=== PATIENT | female | born 1980 | race Caucasian/White ===

== ENCOUNTER 2025-05-17 14:01 | Outpatient (OUT) | payer BC, SELFPAY ==
--- OUTSIDE RECORDS SUMMARY | 2025-05-17 13:10 | XMS_ITS | Encounter Summary ---
Author Organization [facility] Address [address] [place] [address] Care Team Providers Care Mobile Pet Groomer Name Role Phone Jessie Chery MD Unavailable Jessie Chery MD Primary Care Provider [phone] Reason for Visit * ReasonCommentsWell Women Visitirregular cycle * OBGYN (Routine) - ClosedSpecialtyDiagnoses / ProceduresReferred By Contact Referred To ContactObstetrics and Gynecology Diagnoses Irregular periods/menstrual cycles Procedures [place] OFFICE/OUTPATIENT NEW HIGH MDM 60 MINUTES Jessie Chery MD [address] [facility] [address] [place] [address] Phone: tel: fax: Paco Us DO [address] [place] [address] Phone: tel: Referral IDStatusReasonStart DateExpiration DateVisits RequestedVisits [id number] Required / Encounter Details DateTypeDepartmentCare Team (Latest Contact Info)Zswrmmsgcdg56/27/2025 1:10 PM EDTConsult [facility] [place] [facility] [address] [facility] [place] [address] Paco Us DO [address] [place] [address] Well woman exam with routine gynecological exam; Encounter for screening mammogram for malignant neoplasm of breast; Excessive menstruation with irregular cycle; Request for sterilization Social History Tobacco UseTypesPacks/DayYears UsedDateSmoking Tobacco: FormerCigarettes Smokeless Tobacco: Never Comments:Smokes 5 or less pe r day Alcohol UseStandard Drinks/WeekCommentsNot Lxyoazown31 (1 standard drink = 0.6 oz pure alcohol)coffee, tea 2-3 cups per daySocial Connection and Isolation PanelAnswerDate RecordedIn a typical week, how many times do you talk on the phone with family, friends, or neighbors?Once a week10/02/2023How often do you get together with friends or relatives?Patient /13/2024How often do you attend baptist or baptist services?Patient quwwvfcm80/13/2024o you belong to any clubs or organizations such as baptist groups, unions, fraternal or athletic groups, or school groups?No10/02/2023How often do you attend meetings of the clubs or organizations you belong to?Patient fwrbdduo31/13/2024re you , , , , never , or living with a partner? Living with gkwwrtm3910/02/2023UDIT-CAnswerDate RecordedQ1: How often do you have a drink containing alcohol?Never10/02/2023Q2: How many drinks containing alcohol do you have on a typical day when you are drinking?Patient does not drink 10/02/2023Q3: How often do you have six or more drinks on one occasion?Never 10/02/2023Overall Financial Resource Strain (CARDIA)AnswerDate RecordedHow hard is it for you to pay for the very basics like food, housing, medical care, and heating?Somewhat hard10/02/2023HQ-2AnswerDate RecordedPatient Health Questionnaire-2 Utaxv680Finriverton hospital [place] of Occupational Health - Occupational Stress QuestionnaireAnswerDate RecordedDo you feel stress - tense, restless, nervous, or anxious, or unable to sleep at night because yourmind is troubled all the time - these days?Rather much10/02/2023Exercise Vital Sign AnswerDate RecordedOn average, how many days per week do you engage in moderate to strenuous exercise (like a brisk walk)?5 days10/02/2023On average, how many minutes do you engage in exercise at this level?60 min10/02/2023Hunger Vital SignAnswerDate RecordedWithin the past 12 months, you worried that your food would run out before you got the money to buymore.Never true10/02/2023Within the past 12 months, the food you bought just didn't last and you didn't have money to get more.Never true10/02/2023RAPARE - TransportationAnswerDate RecordedIn the past 12 months, has lack of transportation kept you from medical appointments or from getting medications?No10/02/2023In the past 12 months, has lack of transportation kept you from meetings, work, or from getting things needed for daily living?No10/02/2023Housing Stability Vital SignAnswerDate RecordedIn the last 12 months, was there a time when you were not able to pay the mortgage or rent on time?No10/02/2023In the last 12 months, how many places have you lived?In the last 12 months, was there a time when you did not have a steady place to sleep or slept in [facility] (including now)?No 10/02/2023CommentsNoSex and Gender InformationValueDate RecordedSex Assigned at BirthNot on fileLegal StuIkezdv17/15/2023 6:45 PM EDTGender Identity Not on fileSexual OrientationNot on filedocumented as of this encounter Last Filed Vital Signs Vital SignReadingTime TakenCommentsBlood Nvmppvfp683/7005/17/2025 1:08 PM EDT Pulse--Temperature--Respiratory Rate--Oxygen Saturation--Inhaled Oxygen Concentration--Zwcnms31.5 kg (155 lb 8 oz)05/17/2025 1:08 PM GMYCfkaid126.6 cm (5' 4 )05/17/2025 1:08 PM EDTBody Mass Index26.6905/17/2025 1:08 PM EDT documented in this encounter Plan of Treatment DateTypeDepartmentCare Team (Latest Contact Info)Atqlbngpqmv28/24/2025 9:30 AM ESTProcedure Visit [facility] [address] [place] [address] [place] [id number] Paco Us, [address] [facility] [place] [address] NameTypePriorityAssociated DiagnosesOrder ScheduleBilateral screening mammogram ImagingRoutine Encounter for screening mammogram for malignant neoplasm of breast Expected: 05/17/2025 (Approximate), Expires: 07/17/2026THIN PREP TIS PAP AND HR HPV DNAPathology and CytologyRoutine Well woman exam with routine gynecological exam Ordered: 05/17/2025hCG, quantitative, pregnancyLabRoutine Excessive menstruation with irregular cycle Ordered: 05/17/2025TSHLabRoutine Excessive menstruation with irregular cycle Ordered: 05/17/2025T4, freeLabRoutine Excessive menstruation with irregular cycle Ordered: 05/17/2025BC and differentialLabRoutine Excessive menstruation with irregular cycle Ordered: 05/17/2025Follicle stimulating hormoneLabRoutine Excessive menstruation with irregular cycle Ordered: 05/17/2025Luteinizing hormoneLabRoutine Excessive menstruation with irregular cycle Ordered: 05/17/2025Hemoglobin J3gWekOjfmflw Excessive menstruation with irregular cycle Ordered: 05/17/2025DHEA-sulfateLabRoutine Excessive menstruation with irregular cycle Ordered: 05/17/2025DHEALabRoutine Excessive menstruation with irregular cycle Ordered: 05/17/2025US Pelvis w/ TVImagingRoutine Excessive menstruation with irregular cycle Expected: 05/17/2025, Expires: 05/17/2026ProlactinLabRoutine Excessive menstruation with irregular cycle Ordered: 05/17/2025documented as of this encounter Visit Diagnoses Diagnosis Well woman exam with routine gynecological exam Routine gynecological examination Encounter for screening mammogram for malignant neoplasm of breast Excessive menstruation with irregular cycle Request for sterilization documented in this encounter Care Teams Team MemberRelationshipSpecialtyStart DateEnd Date Jessie Chery MD [address] [facility] [address] [place] [address] PCP - [place] [employer]10/20/20 Jessie Chery MD [address] [facility] 110 [place] [id number] PCP - GeneralFamily Medicine02/07/23documented as of this encounter
[2025-05-17 14:23] LABS: Hematocrit 37.7 % (36.0-48.0); Hemoglobin 12.4 g/dL (12.0-16.0); Immature Granulocytes Abs Auto 0.05 10^3/uL (0.00-0.03); Immature Granulocytes Pct Auto 0.5 % (0.0-0.5); Lymphocytes Absolute Auto 3.7 10^3/uL (1.2-3.8); Mean Corpuscular HGB Conc 32.9 g/dL (29.9-35.2); Mean Corpuscular Hemoglobin 30.4 pg (26.7-34.0); Mean Corpuscular Volume 92.4 fL (81.0-99.0); Platelet Count 320 10^3/uL (150-450); Red Blood Count 4.08 10^6/uL (4.20-5.40); White Blood Count 9.4 10^3/uL (4.0-11.0)
--- OUTSIDE RECORDS SUMMARY | 2025-05-17 14:55 | XMS_ITS | Patient Health Record ---
Author Organization [facility] [place] Address [address] [place] [address] Support Name Relationship Address Phone Martina Gayle Guarantor Unknown [phone] Reason For Referral No Information Immunizations Vaccine Route Administration Date Status Comme nts Flu, Fluzone (19839) 6 mos+, single-dose syringe/vial (3531-4663) Intramuscular 08/14/2013 Pending 71Mfn23 14 09:48AM Plan Of Treatment No Information
--- OUTSIDE RECORDS SUMMARY | 2025-05-17 14:56 | XMS_ITS | Encounter Summary ---
Author Organization [facility] Address [address] [facility] [place] [address] Care Team Providers Care Academic Affairs Specialist Name Role Phone Jessie Chery MD Unavailable Jessie Chery MD Primary Care Provider [phone] Encounter Details DateTypeDepartmentCare Team (Latest Contact Info)Hjumstxbvto90/27/2025amboo flowsheet [facility] [place] [facility] [address] [place] [address] Paco Us DO [address] [place] [id number] Social History Tobacco UseTypesPacks/DayYears UsedDateSmoking Tobacco: FormerCigarettes Smokeless Tobacco: Never Comments:Smokes 5 or less pe r day Alcohol UseStandard Drinks/WeekCommentsNot Htwwicmdh57 (1 standard drink = 0.6 oz pure alcohol)coffee, tea 2-3 cups per daySocial Connection and Isolation PanelAnswerDate RecordedIn a typical week, how many times do you talk on the phone with family, friends, or neighbors?Once a week10/02/2023How often do you get together with friends or relatives?Patient rvufjjfj50/13/2024How often do you attend rastafari or episcopalian services?Patient crwhaipi51/13/2024o you belong to any clubs or organizations such as rastafari groups, unions, fraternal or athletic groups, or school groups?No10/02/2023How often do you attend meetings of the clubs or organizations you belong to?Patient lzqthxyx00/13/2024re you , , , , never , or living with a partner? Living with xpksccv4910/02/2023UDIT-CAnswerDate RecordedQ1: How often do you have a [...] care, and heating?Somewhat hard10/02/2023HQ-2AnswerDate RecordedPatient Health Questionnaire-2 Ewcwm678Finva hospital [place] of Occupational Health - Occupational Stress QuestionnaireAnswerDate [...] steady place to sleep or slept in ashelter (including now)?No 4CommentsNoSex and Gender InformationValueDate RecordedSex Assigned at BirthNot on fileLegal PlgEckbdo91/15/2023 6:45 PM EDTGender Identity Not on fileSexual OrientationNot on filedocumented as of this encounter Plan of Treatment DateTypeDepartmentCare Team (Latest Contact Info)Vqjvubwjfqb42/24/2025 9:30 AM ESTProcedure Visit [facility] [address] [facility] [place] [address] Paco Us DO [address] [facility] [address] [place], [place] [id number] documented as of this encounter Visit Diagnoses Not on filedocumented in this encounter Care Teams Team MemberRelationshipSpecialtyStart DateEnd Date Jessie Chery MD [address] [facility] 110 [place] [address] PCP - Estefania Hazel10/20/20 Jessie Chery MD [address] [facility] [address] [place] [address] PCP - GeneralFamily Medicine02/07/23documented as of this encounter
--- OUTSIDE RECORDS SUMMARY | 2025-05-17 14:56 | XMS_ITS | Clinical Summary ---
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 30 tablet 5Active lamoTRIgine (LaMICtal) 25 MG tablet Indications:Adjustment disorder with anxiety,Bipolar disorder, in full remission, most recent episode mixed (HCC)Take 1 tablet (25 mg) by mouth Daily 30 tablet 5Active clonazePAM (KlonoPIN) 0.5 MG tablet Indications:Adjustment disorder with anxietyTake 1 tablet (0.5 mg) by mouth in the morning and 1 tablet (0.5 mg) before bedtime. 60 tablet 5Active HYDROcodone-acetaminophen (Cabot) 5-325 MG tablet Indications:SacroiliitisTake 1 tablet by mouth 2 (two) times a day as needed for moderate pain or severe pain 60 tablet /5Active clonazePAM (KlonoPIN) 0.5 MG tablet Indications:Adjustment disorder with anxietyTake 1 tablet (0.5 mg) by mouth in the morning and 1 tablet (0.5 mg) before bedtime. 60 tablet 51Discontinued(Reorder) HYDROcodone-acetaminophen (Cabot) 5-325 MG tablet Indications:SacroiliitisTake 1 tablet by mouth 2 (two) times a day as needed for moderate pain or severe pain 60 tablet Discontinued(Reorder) Active Problems ProblemNoted DateDiagnosed DateIrregular periods/menstrual ebqcna3603/30/2025 Uueilsfhh22/17/2025 Assessment & Plan (01/05/2025 3:25 PM EDT): D/W patient risks and benefits of steroid injection. Dimpling at site of injection, Increased sugars potentially if Diabetic, Avascular necrosis. Patient has had in past with no adverse reaction. Answered all questions about steroid shot. Screening for thyroid ihsgtneu61/18/2025 Assessment & Plan (10/06/2024 3:39 PM EDT): Check labs Benign essential xelyqnwkjaqt77/18/2025 Assessment & Plan (10/06/2024 3:39 PM EDT): Our specific goals, for your hypertension, is to keep your blood pressure less than 140/90, and theimportance of weight control. We made recommendations on how to control your blood pressure, and minimize your risk of these copmplications. We also discussed your current barriers to a healthy living and importance of healthy diet and exercise. Prior to your visit today we have reviewed your chart and formed a plan to assist with providing you the best possible care. We reviewed the possible complications of hypertension including, stroke, heart failure and kidney impairment. In addition, we discussed your medications, the importance of taking them as prescribed. DASH diet handouts Adjustment disorder with wkctnsw3012/31/2022 Assessment & Plan (03/30/2025 3:35 PM EDT): Patient's Medicine is effective at controlling symptoms at current dose and frequency. PDMP reviewed with no evidence of overuse and abuse D/W patient to avoid use of benzodiazepines when consuming alcohol Advised against operating heavy machinery and driving long distances while on medicines. Assessment & Plan (01/05/2025 3:12 PM EDT): Patient's Medicine is effective at controlling symptoms at current dose and frequency. PDMP reviewed with no evidence of overuse and abuse D/W patient to avoid use of benzodiazepines when consuming alcohol Advised against operating heavy machinery and driving long distances while on medicines. Assessment & Plan (07/20/2024 9:24 AM EST): Patient's Medicine is effective at controlling symptoms at current dose and frequency. PDMP reviewed with no evidence of overuse and abuse D/W patient to avoid use of benzodiazepines when consuming alcohol Advised against operating heavy machinery and driving long distances while on medicines. Assessment & Plan (02/04/2024 2:51 PM EDT): Patient's Medicine is effective at controlling symptoms at current dose and frequency. PDMP reviewed with no evidence of overuse and abuse D/W patient to avoid use of benzodiazepines when consuming alcohol Advised against operating heavy machinery and driving long distances while on medicines. Assessment & Plan (10/07/2023 1:18 PM EDT): Patient's Medicine is effective at controlling symptoms at current dose and frequency. PDMP reviewed with no evidence of overuse and abuse D/W patient to avoid use of benzodiazepines when consuming alcohol Advised against operating heavy machinery and driving long distances while on medicines. Assessment & Plan (03/11/2023 3:48 PM EDT): Patient's Medicine is effective at controlling symptoms at current dose and frequency. PDMP reviewed with no evidence of overuse and abuse D/W patient to avoid use of benzodiazepines when consuming alcohol Advised against operating heavy machinery and driving long distances while on medicines. Alcohol dependence, in gpxcyopxo75/12/2023 Assessment & Plan (01/05/2025 3:22 PM EDT): Stable Assessment & Plan (05/05/2024 3:38 PM EDT): D/W patient reduce or abstain from alcohol D/W patient dangers of using opiates and alcohol together Assessment & Plan (02/04/2024 2:58 PM EDT): Not drinking Other chronic pain12/31/2022 Assessment & Plan (01/05/2025 3:13 PM EDT): Pain Contract signed Assessment & Plan (05/20/2023 3:57 PM EDT): Low suspicion this autoimmune rheumatologic disorder D/W Patient Fibromyalgia Had multiple trigger points Had work up 12 years Zkerhjyovd36/12/2023ipolar vukjymvi19/12/2023 Assessment & Plan (03/30/2025 3:43 PM EDT): Has been getting angry D/W patient Antipsychotics/AntiSeizure differences Lamictal discussed and rash or Yuan Johnsons Assessment & Plan (10/06/2024 3:39 PM EDT): Patient's Medicine is effective at controlling symptoms at current dose and frequency. PDMP reviewed with no evidence of overuse and abuse D/W patient to avoid use of benzodiazepines when consuming alcohol Advised against operating heavy machinery and driving long distances while on medicines. Assessment & Plan (10/07/2023 1:33 PM EDT): Consider ADD Cervical rydfyjpsw33/12/2023ervical stenosis (uterine cervix)12/31/2022 Dnrsinwvogjk03/12/2023Endometriosis determined by /12/2023 Gastroesophageal reflux disease without yupzdotzrzl49/12/2023Lumbago with sciatica, right side12/31/2022Menorrhagia with regular cycle12/31/2022ain in female genitalia on jczaijfwmyh10/12/2023rimary aslnbnxs05/12/2023Sciatica of left side12/31/20220835Isfviixacefe06/12/2023 Assessment & Plan (07/20/2024 9:28 AM EST): Medication choice and dosage is appropriate for patient's current medical conditions. Patient will continue to be required to be seen in our office at least every three months for monitoring. At eachfollow up visit I will reassess the patient's need for the medication. Patient is to have this medication prescribed only through this office. Failure to follow the rules and regulations will result in tapering and discontinuation of medications if applicable. Patient verbalized understanding. OARRS Report was reviewed for this patient. Cut out pop Assessment & Plan (05/05/2024 3:40 PM EDT): This is a chronic medical condition that is stable since last assessment. No changes in treatment are suggested at this time. Continue Current meds. I discussed with patient that while on prednisone, do not take any NSAIDs like Ibuprofen, Naprosyn,Alleve or motrin. Watch for any side effects like abdominal pain and nausea. Take the prednisone with food or milk. Prednisone may increase appetite. While on prednisone, watch for any sugar elevations. Assessment & Plan (10/07/2023 1:18 PM EDT): Medication choice and dosage is appropriate for patient's current medical conditions. Patient will continue to be required to be seen in our office at least every three months for monitoring. At eachfollow up visit I will reassess the patient's need for the medication. Patient is to have this medication prescribed only through this office. Failure to follow the rules and regulations will result in tapering and discontinuation of medications if applicable. Patient verbalized understanding. OARRS Report was reviewed for this patient. Assessment & Plan (03/11/2023 3:49 PM EDT): Medication choice and dosage is appropriate for patient's current medical conditions. Patient will continue to be required to be seen in our office at least every three months for monitoring. At eachfollow up visit I will reassess the patient's need for the medication. Patient is to have this medication prescribed only through this office. Failure to follow the rules and regulations will result in tapering and discontinuation of medications if applicable. Patient verbalized understanding. OARRS Report was reviewed for this patient. Seasonal allergic laggeezy62/12/2191Tbhjeb30/12/2023Spondylolisthesis at L5-S1 level12/31/2022 Assessment & Plan (01/05/2025 3:13 PM EDT): Medication choice and dosage is appropriate for patient's current medical conditions. Patient will continue to be required to be seen in our office at least every three months for monitoring. At eachfollow up visit I will reassess the patient's need for the medication. Patient is to have this medication prescribed only through this office. Failure to follow the rules and regulations will result in tapering and discontinuation of medications if applicable. Patient verbalized understanding. OARRS Report was reviewed for this patient. Spondylolysis of lumbosacral ekbaht0712/31/2022 Assessment & Plan (05/05/2024 3:37 PM EDT): Medication choice and dosage is appropriate for patient's current medical conditions. Patient will continue to be required to be seen in our office at least every three months for monitoring. At eachfollow up visit I will reassess the patient's need for the medication. Patient is to have this medication prescribed only through this office. Failure to follow the rules and regulations will result in tapering and discontinuation of medications if applicable. Patient verbalized understanding. OARRS Report was reviewed for this patient. Phvebmgwrrkfq95/12/2023History of cervical ygxwryaqa53/17/2020 Encounters DateTypeDepartmentCare IdhqAcgarhtqytb97/27/2025 1:10 PM EDTConsult [facility] [address] [place] [phone] Paco Us, DO Well woman exam with routine gynecological exam; Encounter for screening mammogram for malignant neoplasm of breast; Excessive menstruation with irregular cycle; Request for kjpbicmbfeiiy50/27/2025linisync Result Encounter [facility] External Department Unsolicited Paco Us, DO 5Bamboo flowsheet [facility] [address] [address] [place] [phone] Paco Us, DO 05/16/20252807Nyntts99/06/2025Refill [facility] [address] [place] [phone] Jessie Chery MD Bfnpkkzvkshq21/02/2025Refill [facility] [address] [facility] [address] [place] [address] Jessie Chery MD Adjustment disorder with aykpdhy6703/30/2025 3:30 PM EDTOffice Visit [facility] [address] [place] [address] Jessie Chery MD Adjustment disorder with anxiety (Primary Dx); Irregular periods/menstrual cycles; Bipolar disorder, in full remission, most recent episode mixed (HCC)03/30/2025 Rlxslw0303/25/2025Refill [facility] [address] [facility] [address] [place] [address] Maria Esther Jones, GER Krfqfuponles54/04/2025Refill [facility] [address] [facility] [address] [place] [address] Jessie Chery MD Adjustment disorder with mwytpja8403/25/20257153Erdhyp14/08/2025Refill [facility] [address] [place] [address] Maria Esther Jones, GER Hpweazsubpmb73/05/2025Refill [facility] [address] [facility] [address] [place] [address] Maria Esther Jones, GER Adjustment disorder with mzumugf8302/23/2025Refill [facility] [address] [facility] [address] [place] [address] Jessie Chery MD Sacroiliitisfrom Last 3 Months Immunizations ImmunizationAdministration DatesNext DueInfluenza, injectable, quadrivalent 06/20/2021Influenza, injectable, quadrivalent, preservative free05/09/2022, 05/21/2020Influenza, seasonal, zhggqwebsa35/24/2014Influenza, seasonal, intradermal, preservative free05/16/2015 Family History Medical HistoryRelationNameCommentsArthritisFatherJim ZoellnerOvarian cancer Father's SisterProstate cancerMaternal GrandfatherRelationNameStatusComments FatherJim ZoellnerAliveFather's Sisterin early 20's due to estrogenMaternal GrandfatherMotherAlive Social History Tobacco UseTypesPacks/DayYears UsedDateSmoking Tobacco: FormerCigarettes Smokeless Tobacco: Never Tobacco Cessation:Counseling Given: Not Answered Comments:Smokes 5 or less per day Alcohol UseStandard Drinks/WeekCommentsNot Tsaeiirtw60 (1 standard drink = 0.6 oz pure alcohol)coffee, tea 2-3 cups per daySocial Connection and Isolation PanelAnswerDate RecordedIn a typical week, how many times do you talk on the phone with family, friends, or neighbors?Once a week10/02/2023How often do you get together with friends or relatives?Patient lasmfmdh28/13/2024How often do you attend anabaptist or nondenominational services?Patient pzkitcva44/13/2024o you belong to any clubs or organizations such as anabaptist groups, unions, fraternal or athletic groups, or school groups?No10/02/2023How often do you attend meetings of the clubs or organizations you belong to?Patient akmffinv43/13/2024re you , , , , never , or living with a partner? Living with xpyojuk3910/02/2023UDIT-CAnswerDate RecordedQ1: How often do you have a [...] care, and heating?Somewhat hard10/02/2023HQ-2AnswerDate RecordedPatient Health Questionnaire-2 Iyzjs535Finintermountain healthcare [place] [employer] - Occupational Stress QuestionnaireAnswerDate [...] steady place to sleep or slept in universal health services (including now)?No 10/02/2023CommentsNoSex and Gender InformationValueDate RecordedSex Assigned at BirthNot on fileLegal TrkWhrtud78/15/2023 6:45 PM EDTGender Identity Not on fileSexual OrientationNot on file Last Filed Vital Signs Vital SignReadingTime TakenCommentsBlood Ohoydgiy802/7010 1:08 PM EDT Osjfu4207 3:27 PM EDTTemperature--Respiratory Rate--Oxygen Wnhwvutvyg79% 03/30/2025 3:27 PM EDTInhaled Oxygen Concentration--Rzfyok72.5 kg (155 lb 8 oz) 05/17/2025 1:08 PM ZSAAsexhm100.6 cm (5' 4 )05/17/2025 1:08 PM EDTBody Mass Index26.6905/17/2025 1:08 PM EDT Plan of Treatment DateTypeDepartmentCare Team (Latest Contact Info)Ntyaxipbptv34/24/2025 9:30 AM ESTProcedure Visit [facility] [address] [place] [phone] Paco Us, [address] [facility] [address] [place], [place] [phone] Health MaintenanceDue DateLast DoneCommentsCT Irghgdtpelzz75/17/1979FIT-DNA 1978FIT1978FOBT1978 8787Plarulsthnwrj71/17/1979MMR Vaccines (1 of 1 - Standard series)12/06/1979DTaP/Tdap/Td Vaccines (1 - Tdap)1985Hepatitis B Vaccines (1 of 3 - 19+ 3-dose series)1997Pneumococcal Vaccine: Pediatrics (0 to 5 Years) and At-Risk Patients (6 to 64 Years) (1 of 2 - PCV) 1997Pap Smear12/06/19997511Clyfzomtqgb91, 12/09/2014 Colorectal Cancer Gchvmiujo13/21/2025COVID-19 Vaccine (2 - season) Influenza Vaccine (#1)/, 06/20/2021, 05/21/2020, Additional history jdesnmQysbwiejn25/12/202511/06/2024, 03/16/2019, 03/16/2019Cervical Cancer Anhlzzauq90/12/2026HPV/Cgjufr55HIB VaccinesAged OutNo longer eligible based on patient's age to complete this topic HPV VaccinesAged OutNo longer eligible based on patient's age to complete this topicHepatitis A VaccinesAged OutNo longer eligible based on patient's age to complete this topicIPV VaccinesAged OutNo longer eligible based on patient's age to complete this topicMeningococcal B VaccineAged OutNo longer eligible based on patient's age to complete this topicMeningococcal VaccineAged OutNo longer eligible based on patient's age to complete this topicRotavirus VaccinesAged Out No longer eligible based on patient's age to complete this topic Procedures Procedure NamePriorityDate/TimeAssociated DiagnosisCommentsALL CBC WITH AUTO CRLKMpnfsmr36/27/2025 2:16 PM EDT BI MAMMOGRAM SCREENING TOMOSYNTHESIS HKDNGPZTSPaaxuof44/12/2024 4:08 PM EST Encounter for screening mammogram for malignant neoplasm of breast THINPREP TIS PAP REFLEX HPV MRNA E6/E7 ([id number])Qxuhrek5201/30/2021 FSANNCEHANGSwpwvhx25/21/2015 12:00 PM EDT from Last 3 Months or Most Recently Relevant to Health Maintenance Results * (ABNORMAL) ALL CBC WITH AUTO DIFF (05/17/2025 2:16 PM EDT)ComponentValueRef RangeTest MethodAnalysis TimePerformed AtPathologist SignatureTBH WBC9.44.0 - 11.0 10 3/uLTBHTBH RBC4.08(L)4.20 - 5.40 10 6/uLTBHTBH HGB12.412.0 - 16.0 g/dL TBHTBH HCT37.736.0 - 48.0 %TBHTBH MCV92.481.0 - 99.0 fLTBHTBH MCH30.426.7 - 34.0 pgTBHTBH MCHC32.929.9 - 35.2 g/dLTBHTBH RDW12.511.0 - 15.0 %TBHTBH ARX712 150 - 450 10 3/uLTBHTBH MPV9.1(L)9.5 - 13.5 fLTBHNEUTROPHILS PERCENT AUTO52.3 43.0 - 75.0 %TBHLYMPHOCYTES PERCENT AUTO39.920.5 - 60.0 %TBHMONOCYTES PERCENT AUTO5.31.7 - 12.0 %TBHTBH EO %1.30.9 - 7.0 %TBHBASOPHILS PERCENT AUTO0.70.2 - 2.0 %TBHIMMATURE GRANULOCYTES PCT AUTO0.50.0 - 0.5 %TBHNEUTROPHILS ABSOLUTE AUTO4.91.4 - 6.5 10 3/uLTBHLYMPHOCYTES ABSOLUTE AUTO3.71.2 - 3.8 10 3/uLTBH MONOCYTES ABSOLUTE AUTO0.50.3 - 0.8 10 3/uLTBHTBH EO #0.10.0 - 0.7 10 3/uLTBH BASOPHILS ABSOLUTE AUTO0.10.0 - 0.1 10 3/uLTBHIMMATURE GRANULOCYTES ABS AUTO 0.05(H)0.00 - 0.03 10 3/uLTBHSpecimen (Source)Anatomical Location / Laterality Collection Method / VolumeCollection TimeReceived Time05/17/2025 2:16 PM EDT 05/17/2025 2:17 PM EDT Narrative CLINISYNC - 05/17/2025 2:25 PM EDT Authorizing ProviderResult TypeResult StatusCorey Magen DOCLINISYNCFinal Result Performing OrganizationAddressCity/State/ZIP CodePhone Number [facility] * Bilateral screening mammogram with tomosynthesis (06/02/2024 4:08 PM EST) Anatomical RegionLateralityModalityBreastBilateralMammographySpecimen (Source) Anatomical Location / LateralityCollection Method / VolumeCollection Time Received Time06/03/2024 1:50 PM EST Impressions 06/03/2024 1:55 PM EST Impression: No specific evidence of malignancy seen in either breast. BIRADS 2 - Benign DENSITY: The breasts are heterogeneously dense, which may obscure small masses FOLLOW-UP: Routine Screening Mamm ELECTRONICALLY SIGNED BY: Christian Camp M.D. Narrative 06/03/2024 1:55 PM EST Examination: BI MAMMOGRAM SCREENING TOMOSYNTHESIS BILATERAL Clinical History: yearly Technique: Screening digital mammography study of both breasts was performed with 2-D and 3-D tomosynthesis imaging. Study was compared to the prior exam dated 03/16/2019. Findings: There is no evidence of interval dominant spiculated mass, grouped microcalcifications, or skin thickening which would be suggestive of malignancy. ?? A single benign-appearing calcification is seen on the left. Breast implants are noted bilaterally and appear grossly unremarkable, no obvious interval contour abnormality or leak. Procedure Note Christian Camp MD - 06/03/2024 Examination: BI MAMMOGRAM SCREENING TOMOSYNTHESIS BILATERAL Clinical History: yearly Technique: Screening digital mammography study of both breasts wasperformed with 2-D and 3-D tomosynthesis imaging. Study was compared tothe prior exam dated 03/16/2019. Findings: There is no evidence of interval dominant spiculated mass,grouped microcalcifications, or skin thickening which would be suggestiveof malignancy. A single benign-appearing calcification is seen on the left. Breastimplants are noted bilaterally and appear grossly unremarkable, no obviousinterval contour abnormality or leak. IMPRESSION: Impression: No specific evidence of malignancy seen in either breast. BIRADS 2 - Benign DENSITY: The breasts are heterogeneously dense, which may obscure smallmasses FOLLOW-UP: Routine Screening Mamm ELECTRONICALLY SIGNED BY: Christian Camp M.D. Authorizing ProviderResult TypeResult StatusJessie Chery MDIMFabiola BI PROCEDURES Final Result * THINPREP TIS PAP REFLEX HPV MRNA E6/E7 ([id number]) (01/30/2021)ComponentValueRef RangeTest MethodAnalysis TimePerformed AtPathologist SignatureCLINICAL INFORMATION:Normal examNOMS LEGACY EXTERNAL LABLMP:01/20/21[facility] LEGACY EXTERNAL LABPREV. PAP:NL PER PT 2018[facility] LEGACY EXTERNAL LABPREV. BX:NANOMS LEGACY EXTERNAL LABSOURCE:EndocervixNOMS LEGACY EXTERNAL LABSTATEMENT OF ADEQUACY:SEE COMMENTNOMS LEGACY EXTERNAL LABComment: Satisfactory for evaluation. Endocervical/transformation zone component absent. INTERPRETATION/RESULT:Negative for intraepithelial lesion or malignancy.[facility] EXTERNAL LABCOMMENT:This Pap test has been evaluated with computer assisted technology.[facility] LABCYTOTECHNOLOGIST:SEE COMMENTSee Note:[facility] LEGACY EXTERNAL LABComment: Reference Range: ZL, CT(ASCP) CT screening location: [employer] [facility], [address] [place] [address]. COMMENTSEE COMMENTNOMS LEGACY EXTERNAL LABComment: EXPLANATORY NOTE: The Pap is a screening test for cervical cancer. It is not a diagnostic test and is subject to false negative and false positive results. It is most reliable when a satisfactory sample, regularly obtained, is submitted with relevant clinical findings and history, and when the Pap result is evaluated along with historic and current clinical information. Specimen (Source)Anatomical Location / LateralityCollection Method / Volume Collection TimeReceived Time01/30/2021 Narrative Authorizing ProviderResult TypeResult StatusGeoffrey Perales DOEC LABSFinal ResultPerforming OrganizationAddressCity/State/ZIP CodePhone Number [facility] * Colonoscopy (12/09/2014 12:00 PM EDT)Anatomical RegionLateralityModality EndoscopySpecimen (Source)Anatomical Location / LateralityCollection Method / VolumeCollection TimeReceived Time12/09/2014 12:00 PM EDT Narrative 12/09/2014 12:00 PM EDT PERFORMED AT [facility] LOCATION:[id number] external hemorrhoids Procedure Note CONVERSION, GENERIC - 12/06/2022 PERFORMED AT [facility] LOCATION:[id number] external hemorrhoids Authorizing ProviderResult TypeResult Bryan Chery MDENDOSCOPY PROCEDURE ORDERABLESFinal Result from Last 3 Months or Most Recently Relevant to Health Maintenance Insurance Care Teams Team MemberRelationshipSpecialtyStart DateEnd Date Jessie Chery MD [address] [place] [id number] PCP - [facility]10/20/20 Jessie Chery MD [address] [facility] [address] [place] [address] PCP - [facility]02/07/23
--- OUTSIDE RECORDS SUMMARY | 2025-05-17 14:56 | XMS_ITS | Encounter Summary ---
Author Organization [facility] Address [address] [place] [address] Care Team Providers Care Conveyor System Operator Name Role Phone Jessie Chery MD Unavailable Jessie Chery MD Primary Care Provider [phone] Encounter Details DateTypeDepartmentCare Team (Latest Contact Info)Uhyzuavaard62/26/2025Travel Social History Tobacco UseTypesPacks/DayYears UsedDateSmoking Tobacco: FormerCigarettes Smokeless Tobacco: Never Comments:Smokes 5 or less pe r day Alcohol UseStandard Drinks/WeekCommentsNot Rfzjirfib81 (1 standard drink = 0.6 oz pure alcohol)coffee, tea 2-3 cups per daySocial Connection and Isolation PanelAnswerDate RecordedIn a typical week, how many times do you talk on the phone with family, friends, or neighbors?Once a week10/02/2023How often do you get together with friends or relatives?Patient /13/2024How often do you attend sabianist or methodist services?Patient zedbaono96/13/2024o you belong to any clubs or organizations such as sabianist groups, unions, fraternal or athletic groups, or school groups?No10/02/2023How often do you attend meetings of the clubs or organizations you belong to?Patient bshemxps31/13/2024re you , , , , never , or living with a partner? Living with fgmnxvi9610/02/2023UDIT-CAnswerDate RecordedQ1: How often do you have a [...] care, and heating?Somewhat hard10/02/2023HQ-2AnswerDate RecordedPatient Health Questionnaire-2 Aekiv999FinInd[facility] of Occupational [facility] - Occupational Stress QuestionnaireAnswerDate [...] sleep or slept in ashelter (including now)?No 10/02/2023CommentsUnknownSex and Gender InformationValueDate RecordedSex Assigned at BirthNot on fileLegal VkqIkvfyq65/15/2023 6:45 PM EDTGender Identity Not on fileSexual OrientationNot on filedocumented as of this encounter Plan of Treatment DateTypeDepartmentCare Team (Latest Contact Info)Lgxhehpteut58/24/2025 9:30 AM ESTProcedure Visit [facility] OBSAM[facility]TH[facility] [address] [place] [phone] Paco Us DO [address] [place] [address] documented as of this encounter Visit Diagnoses Not on filedocumented in this encounter Care Teams Team MemberRelationshipSpecialtyStart DateEnd Date Jessie Chery MD [address] [place], [place] [phone] PCP - Estefania Hazel10/20/20 Jessie Chery MD [address] [place] [address] PCP - GeneralFamily Medicine02/07/23documented as of this encounter
[2025-05-17 15:00] LABS: Thyroid Stimulating Hormone 1.700 uIU/mL (0.358-3.740)
[2025-05-18 12:09] LABS: FSH 6.0 mIU/mL (.)
== END 2025-05-17 14:02 | disposition home or self-care (01) ==
LOC: LAB 14:05
PROVIDERS: PCP Family Medicine; Visit Provider Obstetrics & Gynecology
DX: N92.1 Excessive and frequent menstruation with irregular cycle (principal)
CPT/HCPCS: 36415; 82626; 82627; 83001; 83002; 83036; 84146; 84439; 84443; 84702; 85025; 87624; 88175

== ENCOUNTER 2025-05-17 19:54 | Outpatient (REF) | payer BC, SELFPAY ==
--- OUTSIDE RECORDS SUMMARY | 2025-05-17 13:10 | XMS_ITS | Encounter Summary ---
Author Organization [facility] Address [address] [place] [address] Care Team Providers Care Weight Yardage Checker Name Role Phone Jessie Chery MD Unavailable Jessie Chery MD Primary Care Provider [phone] Reason for Visit * ReasonCommentsWell Women Visitirregular cycle * OBGYN (Routine) - ClosedSpecialtyDiagnoses / ProceduresReferred By Contact Referred To ContactObstetrics and Gynecology Diagnoses Irregular periods/menstrual cycles Procedures AL OFFICE/OUTPATIENT NEW HIGH MDM 60 MINUTES Jessie Chery MD [address] [facility] [address] [place] [address] Phone: tel: fax: Paco Us DO [address] [place] [address] Phone: tel: Referral IDStatusReasonStart DateExpiration DateVisits RequestedVisits [id number] [facility] Required / Encounter Details DateTypeDepartmentCare Team (Latest Contact Info)Kicsnnqtnec08/27/2025 1:10 PM EDTConsult [facility]ATRINA [facility] [place] [facility] [address] [facility] [place] [address] Paco Us DO [address] [place] [address] Well woman exam with routine gynecological exam; Encounter for screening mammogram for malignant neoplasm of breast; Excessive menstruation with irregular cycle; Request for sterilization Social History Tobacco UseTypesPacks/DayYears UsedDateSmoking Tobacco: FormerCigarettes Smokeless Tobacco: Never Comments:Smokes 5 or less pe r day Alcohol UseStandard Drinks/WeekCommentsNot Eraxfojhs06 (1 standard drink = 0.6 oz pure alcohol)coffee, tea 2-3 cups per daySocial Connection and Isolation PanelAnswerDate RecordedIn a typical week, how many times do you talk on the phone with family, friends, or neighbors?Once a week10/02/2023How often do you get together with friends or relatives?Patient qqhuqlzo43/13/2024How often do you attend baptist or adventist services?Patient wqercere02/13/2024o you belong to any clubs or organizations such as baptist groups, unions, fraternal or athletic groups, or school groups?No10/02/2023How often do you attend meetings of the clubs or organizations you belong to?Patient wqmwbqez66/13/2024re you , , , , never , or living with a partner? Living with geqmnbz6910/02/2023UDIT-CAnswerDate RecordedQ1: How often do you have a [...] care, and heating?Somewhat hard10/02/2023HQ-2AnswerDate RecordedPatient Health Questionnaire-2 Gcdql651Finogden regional medical center [place] of Occupational Health - Occupational Stress QuestionnaireAnswerDate [...] steady place to sleep or slept in [facility] (including now)?No 10/02/2023CommentsNoSex and Gender InformationValueDate RecordedSex Assigned at BirthNot on fileLegal ZhiGjjwnt17/15/2023 6:45 PM EDTGender Identity Not on fileSexual OrientationNot on filedocumented as of this encounter Last Filed Vital Signs Vital SignReadingTime TakenCommentsBlood Oozyqhcz259/7005/17/2025 1:08 PM EDT Pulse--Temperature--Respiratory Rate--Oxygen Saturation--Inhaled Oxygen Concentration--Qqutat32.5 kg (155 lb 8 oz)05/17/2025 1:08 PM NEVNbtexe913.6 cm (5' 4 )05/17/2025 1:08 PM EDTBody Mass Index26.6905/17/2025 1:08 PM EDT documented in this encounter Plan of Treatment DateTypeDepartmentCare Team (Latest Contact Info)Zuvdvcyxyoq46/24/2025 9:30 AM ESTProcedure Visit [facility] [address] [place] [address] [place] [address] Paco Us, [address] [facility] [place] [address] NameTypePriorityAssociated DiagnosesOrder ScheduleBilateral screening mammogram ImagingRoutine Encounter [...] Excessive menstruation with irregular cycle Ordered: 05/17/2025Hemoglobin N5wHxrAyhyevh Excessive menstruation with irregular cycle Ordered: 05/17/2025DHEA-sulfateLabRoutine [...] MemberRelationshipSpecialtyStart DateEnd Date Jessie Chery MD [address] [facility] [address] [place] [address] PCP - [place] [employer]10/20/20 Jessie Chery MD [address] [facility] 110 [place] [phone] PCP - GeneralFamily Medicine02/07/23documented as of this encounter
--- OUTSIDE RECORDS SUMMARY | 2025-05-17 19:59 | XMS_ITS | Clinical Summary ---
Author Organization [facility] Address [address] [place] [address] Care Team Providers Care Ophthalmology Technician Name Role Phone Jessie Chery MD Unavailable Jessie Chery MD Primary Care Provider [phone] Allergies Active AllergyReactionsCriticalityNoted DqheReaxyeqoGuywamkkqg54/08/2020 Other Reaction(s): Unknown Reaction Medications MedicationSigDispense QuantityRefillsLast [...] mg) before bedtime. 60 tablet 5Active HYDROcodone-acetaminophen ([place]) 5-325 MG tablet Indications:SacroiliitisTake 1 tablet by mouth 2 (two) times a day as needed for moderate pain or severe pain 60 tablet /5Active clonazePAM (KlonoPIN) 0.5 MG tablet Indications:Adjustment disorder with anxietyTake 1 tablet (0.5 mg) by mouth in the morning and 1 tablet (0.5 mg) before bedtime. 60 tablet 51Discontinued(Reorder) HYDROcodone-acetaminophen ([place]) 5-325 MG tablet Indications:SacroiliitisTake 1 tablet by mouth 2 (two) times a day as needed for moderate pain or severe pain 60 tablet Discontinued(Reorder) Active Problems ProblemNoted DateDiagnosed DateIrregular periods/menstrual cdypha6503/30/2025 Lvpcqopyz75/17/2025 Assessment & Plan (01/05/2025 3:25 PM EDT): D/W patient risks and benefits of steroid injection. Dimpling at site of injection, Increased sugars potentially if Diabetic, Avascular necrosis. Patient has had in past with no adverse reaction. Answered all questions about steroid shot. Screening for thyroid zxlgjyqo27/18/2025 Assessment & Plan (10/06/2024 3:39 PM EDT): Check labs Benign essential /18/2025 Assessment & Plan (10/06/2024 3:39 PM EDT): [...] prescribed. DASH diet handouts Adjustment disorder with wxtejdw3312/31/2022 Assessment & Plan (03/30/2025 3:35 PM EDT): [...] distances while on medicines. Alcohol dependence, in vdmfjdcfe19/12/2023 Assessment & Plan (01/05/2025 3:22 PM EDT): [...] trigger points Had work up 12 years Vskkcumvcz18/12/2023ipolar jvgipnbr53/12/2023 Assessment & Plan (03/30/2025 3:43 PM EDT): [...] (10/07/2023 1:33 PM EDT): Consider ADD Cervical ltzjpadhz91/12/2023ervical stenosis (uterine cervix)12/31/2022 Cuniosixuicw82/12/2023Endometriosis determined by ngfrijsxfoe52/12/2023 Gastroesophageal reflux disease without gikxymimaxn36/12/2023Lumbago with sciatica, right side12/31/2022Menorrhagia with regular cycle12/31/2022ain in female genitalia on kqvcuzonfhm13/12/2023rimary omllvedf54/12/2023Sciatica of left side12/31/20221479Uurseqamydif65/12/2023 Assessment & Plan (07/20/2024 9:28 AM EST): [...] was reviewed for this patient. Seasonal allergic crrybvra55/12/1887Wvpdwc83/12/2023Spondylolisthesis at L5-S1 level12/31/2022 Assessment & Plan (01/05/2025 [...] reviewed for this patient. Spondylolysis of lumbosacral funqai4212/31/2022 Assessment & Plan (05/05/2024 3:37 PM EDT): [...] OARRS Report was reviewed for this patient. Kwfpbswkcgdpv69/12/2023History of cervical yihgljbdm55/17/2020 Encounters DateTypeDepartmentCare ZeefPkjzebeeikf35/27/2025 1:10 PM EDTConsult [facility] MORENO [address] [place] [phone] Paco Us, DO Well woman exam with routine gynecological exam; Encounter for screening mammogram for malignant neoplasm of breast; Excessive menstruation with irregular cycle; Request for vmpikknesoqcp67/27/2025linisync Result Encounter [facility] External Department Unsolicited Paco Us, DO 5Bamboo flowsheet [facility] [address] [place] [phone] Paco Us, DO 05/16/20258592Tftppo35/06/2025Refill [facility] [address] [place] [phone] Jessie Chery MD Ipknydzsusnh91/02/2025Refill [facility] [address] [facility] [address] [place] [address] Jessie Chery MD Adjustment disorder with fyqqcdl7703/30/2025 3:30 PM EDTOffice Visit [facility] [address] [place] [address] Jessie Chery MD Adjustment disorder with anxiety (Primary Dx); Irregular periods/menstrual cycles; Bipolar disorder, in full remission, most recent episode mixed (HCC)03/30/2025 Oyiqsl3303/25/2025Refill [facility] [address] [facility] [address] [place] [address] Maria Esther Jones, GER Ovmzuvpseybh03/04/2025Refill [facility] [address] [facility] [address] [place] [address] Jessie Chery MD Adjustment disorder with tcgfwdk0103/25/20256207Gpnosl58/08/2025Refill [facility] [address] [place] [address] Maria Esther Jones, GER Qdjaplmhrbmx46/05/2025Refill [facility] [address] [facility] [address] [place] [address] Maria Esther Jones, GER Adjustment disorder with rtarvfv7402/23/2025Refill [facility] [address] [facility] [address] [place] [address] Jessie Chery MD Sacroiliitisfrom Last 3 Months Immunizations ImmunizationAdministration DatesNext DueInfluenza, injectable, quadrivalent 06/20/2021Influenza, injectable, quadrivalent, preservative free05/09/2022, 05/21/2020Influenza, seasonal, mliuecuxbk62/24/2014Influenza, seasonal, intradermal, preservative free05/16/2015 Family History Medical HistoryRelationNameCommentsArthritisFatherJim ZoellnerOvarian cancer Father's SisterProstate cancerMaternal GrandfatherRelationNameStatusComments FatherJim ZoellnerAliveFather's Sisterin early 20's due to estrogenMaternal GrandfatherMotherAlive Social History Tobacco UseTypesPacks/DayYears UsedDateSmoking Tobacco: FormerCigarettes Smokeless Tobacco: Never Tobacco Cessation:Counseling Given: Not Answered Comments:Smokes 5 or less per day Alcohol UseStandard Drinks/WeekCommentsNot Mphscremz49 (1 standard drink = 0.6 oz pure alcohol)coffee, tea 2-3 cups per daySocial Connection and Isolation PanelAnswerDate RecordedIn a typical week, how many times do you talk on the phone with family, friends, or neighbors?Once a week10/02/2023How often do you get together with friends or relatives?Patient htqotvfk15/13/2024How often do you attend alevism or protestant services?Patient mnegcrxu34/13/2024o you belong to any clubs or organizations such as alevism groups, unions, fraternal or athletic groups, or school groups?No10/02/2023How often do you attend meetings of the clubs or organizations you belong to?Patient sxyhvmgj58/13/2024re you , , , , never , or living with a partner? Living with zeekglh8410/02/2023UDIT-CAnswerDate RecordedQ1: How often do you have a [...] care, and heating?Somewhat hard10/02/2023HQ-2AnswerDate RecordedPatient Health Questionnaire-2 Hyjra886Fin[facility] [place] of Occupational Health - Occupational Stress QuestionnaireAnswerDate [...] steady place to sleep or slept in [facility] (including now)?No 10/02/2023CommentsNoSex and Gender InformationValueDate RecordedSex Assigned at BirthNot on fileLegal EcxVbgpbt03/15/2023 6:45 PM EDTGender Identity Not on fileSexual OrientationNot on file Last Filed Vital Signs Vital SignReadingTime TakenCommentsBlood Bitivasu298/7010 1:08 PM EDT Iinsf7528 3:27 PM EDTTemperature--Respiratory Rate--Oxygen Nxskkognhh89% 03/30/2025 3:27 PM EDTInhaled Oxygen Concentration--Clqlsc74.5 kg (155 lb 8 oz) 05/17/2025 1:08 PM CAIOfxcjv024.6 cm (5' 4 )05/17/2025 1:08 PM EDTBody Mass Index26.6905/17/2025 1:08 PM EDT Plan of Treatment DateTypeDepartmentCare Team (Latest Contact Info)Hlsxpgfqecu86/24/2025 9:30 AM ESTProcedure Visit [facility] [address] [phone] Paco Us, [address] [place], [place] [phone] Health MaintenanceDue DateLast DoneCommentsCT Ylkqsgslprwb63/17/1979FIT-DNA 1978FIT1978FOBT1978 7724Elymkwqtbjqlh71/17/1979MMR Vaccines (1 of 1 - Standard series)12/06/1979DTaP/Tdap/Td Vaccines (1 - Tdap)1985Hepatitis B Vaccines (1 of 3 - 19+ 3-dose series)1997Pneumococcal Vaccine: Pediatrics (0 to 5 Years) and At-Risk Patients (6 to 64 Years) (1 of 2 - PCV) 1997Pap Smear12/06/19995351Xxacrgivzvz14, 12/09/2014 Colorectal Cancer Vxsumqnes37/21/2025COVID-19 Vaccine (2 - season) Influenza Vaccine (#1)/, 06/20/2021, 05/21/2020, Additional history fgdxzrEsajsyigj98/12/202511/06/2024, 03/16/2019, 03/16/2019Cervical Cancer Roaaiuads27/12/2026HPV/Mnbeav41HIB VaccinesAged OutNo longer eligible based on patient's [...] complete this topic Procedures Procedure NamePriorityDate/TimeAssociated DiagnosisCommentsALL THYROXINE (T4) WIUSCoxosfn23/27/2025 2:16 PM EDT [facility] PREG QUANT WTBXqcfhhu57/27/2025 2:16 PM EDT ALL THYROID STIM QXTSBKQFcpnrqc20/27/2025 2:16 PM EDT MLR HEMOGLOBIN N3RLtlxwhy17/27/2025 2:16 PM EDT ALL CBC WITH AUTO RYKDYrcmoae55/27/2025 2:16 PM EDT BI MAMMOGRAM SCREENING TOMOSYNTHESIS HYCCJTEBVHgjgaem61/12/2024 4:08 PM EST Encounter for screening mammogram for malignant neoplasm of breast THINPREP TIS PAP REFLEX HPV MRNA E6/E7 ([id number])Jrgbkgt5601/30/2021 VVTIRWLOEDAEnywodi74/21/2015 12:00 PM EDT from Last 3 Months or Most Recently Relevant to Health Maintenance Results * [facility] PREG QUANT HCG (05/17/2025 2:16 PM EDT)ComponentValueRef RangeTest Method Analysis TimePerformed AtPathologist SignatureHCG QUANTITATIVE<1mIU/mLTBH Comment: 5-50 ? 0.2-1 WEEK 50-500 ? 1-2 WEEKS 100-5,000 ?2-3 WEEKS 500-10,000 ? 3-4 WEEKS 1,000-50,000 ?? 4-5 WEEKS 10,000-100,000 5-6 WEEKS 15,000-200,000 6-8 WEEKS 10,000-100,000 2-3 MONTHS Specimen (Source)Anatomical Location / LateralityCollection Method / Volume Collection TimeReceived Time05/17/2025 2:16 PM EDT1 2:17 PM EDT Narrative [facility] - 05/17/2025 3:02 PM EDT Authorizing ProviderResult TypeResult StatusCorey Magen DOCLINISYNCFinal Result Performing OrganizationAddressCity/State/ZIP CodePhone Number [facility] * MLR HEMOGLOBIN A1C (05/17/2025 2:16 PM EDT)ComponentValueRef RangeTest Method Analysis TimePerformed AtPathologist SignatureGLYCOHEMOGLOBIN A1C4.84.5 - 6.2 %TBHComment: ADA RECOMMENDED LIMIT 4.0 - 6.0 ADA THERAPEUTIC TARGET < 7.0 ACTION SUGGESTED > 7.0 ESTIMATED AVERAGE HKMNLED68kg/dLTBHSpecimen (Source)Anatomical Location / LateralityCollection Method / VolumeCollection TimeReceived Time05/17/2025 2:16 PM EDT1 2:17 PM EDT Narrative [facility] - 05/17/2025 2:49 PM EDT Authorizing ProviderResult TypeResult StatusCorey Magen DOCLINISYNCFinal Result Performing OrganizationAddWellSpan Good Samaritan Hospitalty/State/ZIP CodePhone Number [facility] * ALL THYROXINE (T4) FREE (05/17/2025 2:16 PM EDT)ComponentValueRef RangeTest MethodAnalysis TimePerformed AtPathologist SignatureFREE T40.810.76 - 1.46 ng/dLTBHSpecimen (Source)Anatomical Location / LateralityCollection Method / VolumeCollection TimeReceived Time05/17/2025 2:16 PM EDT1 2:17 PM EDT Narrative [facility] - 05/17/2025 3:03 PM EDT Authorizing ProviderResult TypeResult StatusCorey Magen DOCLINISYNCFinal Result Performing OrganizationAdd[facility]/State/ZIP CodePhone Number [facility] * ALL THYROID STIM HORMONE (05/17/2025 2:16 PM EDT)ComponentValueRef RangeTest MethodAnalysis TimePerformed AtPathologist SignatureTHYROID STIMULATING HORMONE1.7000.358 - 3.740 uIU/mLTBHSpecimen (Source)Anatomical Location / LateralityCollection Method / VolumeCollection TimeReceived Time05/17/2025 2:16 PM EDT1 2:17 PM EDT Narrative [facility] - 05/17/2025 3:02 PM EDT Authorizing ProviderResult TypeResult StatusCorey Magen DOCLINISYNCFinal Result Performing OrganizationAddressCity/State/ZIP CodePhone Number [facility] * (ABNORMAL) ALL CBC WITH AUTO DIFF (05/17/2025 2:16 PM EDT)ComponentValueRef RangeTest MethodAnalysis TimePerformed AtPathologist SignatureTBH WBC9.44.0 - 11.0 10 3/uLTBHTBH RBC4.08(L)4.20 - 5.40 10 6/uLTBHTBH HGB12.412.0 - 16.0 g/dL TBHTBH HCT37.736.0 - 48.0 %TBHTBH MCV92.481.0 - 99.0 fLTBHTBH MCH30.426.7 - 34.0 pgTBHTBH MCHC32.929.9 - 35.2 g/dLTBHTBH RDW12.511.0 - 15.0 %TBHTBH ELM688 150 - 450 10 3/uLTBHTBH MPV9.1(L)9.5 - [...] PM EDT 05/17/2025 2:17 PM EDT Narrative KADY[facility]YNC - 05/17/2025 2:25 PM EDT Authorizing ProviderResult TypeResult StatusCorey Magen DOCLINISYNCFinal Result Performing OrganizationAddressCity/State/ZIP CodePhone Number [facility] * Bilateral screening mammogram with tomosynthesis [...] BY: Christian Camp M.D. Authorizing ProviderResult TypeResult Bryan Chery MDIMFabiola BI PROCEDURES Final Result * THINPREP TIS PAP REFLEX HPV MRNA E6/E7 ([id number]) (01/30/2021)ComponentValueRef RangeTest MethodAnalysis TimePerformed AtPathologist SignatureCLINICAL INFORMATION:Normal examNOMS LEGACY EXTERNAL LABLMP:01/20/21[facility] LEGACY EXTERNAL LABPREV. PAP:NL PER PT 2018[facility] LEGACY EXTERNAL LABPREV. BX:[facility] EXTERNAL LABSOURCE:EndocervixNOMS LEGACY EXTERNAL LABSTATEMENT OF ADEQUACY:SEE COMMENTNOMS LEGACY EXTERNAL LABComment: Satisfactory for evaluation. Endocervical/transformation zone component absent. INTERPRETATION/RESULT:Negative for intraepithelial lesion or malignancy.[facility] LEGACY EXTERNAL LABCOMMENT:This Pap test has been evaluated with computer assisted technology.[facility] EXTERNAL LABCYTOTECHNOLOGIST:SEE COMMENTSee Note:[facility] LEGACY EXTERNAL LABComment: Reference Range: ZL, CT(ASCP) CT screening location: [place] [address]. COMMENTSEE COMMENTNOMS LEGACY EXTERNAL LABComment: EXPLANATORY NOTE: [...] Collection TimeReceived Time01/30/2021 Narrative Authorizing ProviderResult TypeResult Esequiel RICO LABSFinal ResultPerforming OrganizationAddressCity/State/ZIP CodePhone Number [facility] * Colonoscopy (12/09/2014 12:00 PM EDT)Anatomical RegionLateralityModality EndoscopySpecimen (Source)Anatomical Location / LateralityCollection Method / VolumeCollection TimeReceived Time12/09/2014 12:00 PM EDT Narrative 12/09/2014 12:00 PM EDT PERFORMED AT [facility] LOCATION:[id number] external hemorrhoids Procedure Note CONVERSION, GENERIC - 12/06/2022 PERFORMED AT [facility] LOCATION:[id number] external hemorrhoids Authorizing ProviderResult TypeResult StatusJessie Chery MDENDOSCOPY PROCEDURE ORDERABLESFinal Result from Last 3 Months or Most Recently Relevant to Health Maintenance Insurance Care Teams Team MemberRelationshipSpecialtyStart DateEnd Date Jessie Chery MD [address] [facility] [address] [place] [address] PCP - [place]10/20/20 Jessie Chery MD [address] [facility] [address] [place] [address] [facility]
--- OUTSIDE RECORDS SUMMARY | 2025-05-17 19:59 | XMS_ITS | Encounter Summary ---
Author Organization [facility] Address [address] [place] [address] Care Team Providers Care Sales Account Executive Name Role Phone Jessie Chery MD Unavailable Jessie Chery MD Primary Care Provider [phone] Encounter Details DateTypeDepartmentCare Team (Latest Contact Info)Bpmxwowyhhe55/26/2025Travel Social History Tobacco UseTypesPacks/DayYears UsedDateSmoking Tobacco: FormerCigarettes Smokeless Tobacco: Never Comments:Smokes 5 or less pe r day Alcohol UseStandard Drinks/WeekCommentsNot Uwnotaxid89 (1 standard drink = 0.6 oz pure alcohol)coffee, tea 2-3 cups per daySocial Connection and Isolation PanelAnswerDate RecordedIn a typical week, how many times do you talk on the phone with family, friends, or neighbors?Once a week10/02/2023How often do you get together with friends or relatives?Patient /13/2024How often do you attend spiritism or tenriism services?Patient iwyxsddy64/13/2024o you belong to any clubs or organizations such as spiritism groups, unions, fraternal or athletic groups, or school groups?No10/02/2023How often do you attend meetings of the clubs or organizations you belong to?Patient mahfutww64/13/2024re you , , , , never , or living with a partner? Living with cnlmeyo5310/02/2023UDIT-CAnswerDate RecordedQ1: How often do you have a [...] care, and heating?Somewhat hard10/02/2023HQ-2AnswerDate RecordedPatient Health Questionnaire-2 Jqkte935FinSelect [facility] [place] of Occupational Health - Occupational Stress QuestionnaireAnswerDate [...] InformationValueDate RecordedSex Assigned at BirthNot on fileLegal ZfjMagafp33/15/2023 6:45 PM EDTGender Identity Not on fileSexual OrientationNot on filedocumented as of this encounter Plan of Treatment DateTypeDepartmentCare Team (Latest Contact Info)Yvbfsprdimz62/24/2025 9:30 AM ESTProcedure Visit [facility] OBSAMANTHAN [address] [place] [phone] Paco Us DO [address] [facility] [place] [address] documented as of this encounter Visit Diagnoses Not on filedocumented in this encounter Care Teams Team MemberRelationshipSpecialtyStart DateEnd Date Jessie Chery MD [address] [place], [place] [phone] PCP - Estefania Hazel10/20/20 Jessie Chery MD [address] [place] [address] PCP - GeneralFamily Medicine02/07/23documented as of this encounter
--- OUTSIDE RECORDS SUMMARY | 2025-05-17 19:59 | XMS_ITS | Encounter Summary ---
Author Organization [facility] Address [address] [place] [address] Care Team Providers Care Date Puller Name Role Phone Jessie Chery MD Unavailable Jessie Chery MD Primary Care Provider [phone] Encounter Details DateTypeDepartmentCare Team (Latest Contact Info)Cpzqswsakkx34/27/2025Clinisync Result Encounter [facility] Unsolicited Paco Us, DO [address] [place] [address] Social History Tobacco UseTypesPacks/DayYears UsedDateSmoking Tobacco: FormerCigarettes Smokeless Tobacco: Never Comments:Smokes 5 or less pe r day Alcohol UseStandard Drinks/WeekCommentsNot Fplsyijjo94 (1 standard drink = 0.6 oz pure alcohol)coffee, tea 2-3 cups per daySocial Connection and Isolation PanelAnswerDate RecordedIn a typical week, how many times do you talk on the phone with family, friends, or neighbors?Once a week10/02/2023How often do you get together with friends or relatives?Patient guiufrpp48/13/2024How often do you attend gnosticism or caodaism services?Patient uyoojsov44/13/2024Do you belong to any clubs or organizations such as gnosticism groups, unions, fraternal or athletic groups, or school groups?No10/02/2023How often do you attend meetings of the clubs or organizations you belong to?Patient xaaxtgvp99/13/2024Are you , , , , never , or living with a partner? Living with ogohlgf2610/02/2023UDIT-CAnswerDate RecordedQ1: How often do you have a [...] care, and heating?Somewhat hard10/02/2023HQ-2AnswerDate RecordedPatient Health Questionnaire-2 Ifemb846Finencompass [facility] [place] of Occupational Health - Occupational Stress QuestionnaireAnswerDate [...] steady place to sleep or slept in [facility] (including now)?No 4CommentsNoSex and Gender InformationValueDate RecordedSex Assigned at BirthNot on fileLegal UqpUaijjd60/15/2023 6:45 PM EDTGender Identity Not on fileSexual OrientationNot on filedocumented as of this encounter Plan of Treatment DateTypeDepartmentCare Team (Latest Contact Info)Rzytfnmvefu17/24/2025 9:30 AM ESTProcedure Visit [facility] [address] [place] [place] [address] Paco Us DO [address] [place] [address] documented as of this encounter Procedures Procedure NamePriorityDate/TimeAssociated DiagnosisCommentsTBH PREG QUANT HCG Thxdqeh1005/17/2025 2:16 PM EDT MLR HEMOGLOBIN F6HNmveowl87/27/2025 2:16 PM EDT ALL THYROXINE (T4) MTTMTrxoofk38/27/2025 2:16 PM EDT ALL THYROID STIM GSMRDTSTxdwphc50/27/2025 2:16 PM EDT ALL CBC WITH AUTO IXNRGtyofui39/27/2025 2:16 PM EDT documented in this encounter Results * ALL THYROXINE (T4) FREE (05/17/2025 2:16 PM EDT)ComponentValueRef RangeTest MethodAnalysis TimePerformed AtPathologist SignatureFREE T40.810.76 - 1.46 ng/dLTBHSpecimen (Source)Anatomical Location / LateralityCollection Method / VolumeCollection TimeReceived Time05/17/2025 2:16 PM EDT1 2:17 PM EDT Narrative CLINISYNC - 05/17/2025 3:03 PM EDT Authorizing ProviderResult TypeResult StatusCorey Magen DOCLINISYNCFinal Result Performing OrganizationAddressCity/State/ZIP CodePhone Number [facility] * TBH PREG QUANT HCG (05/17/2025 2:16 PM EDT)ComponentValueRef RangeTest Method Analysis TimePerformed AtPathologist SignatureHCG QUANTITATIVE<1mIU/mLTBH Comment: 5-50 ? 0.2-1 WEEK 50-500 ? 1-2 WEEKS 100-5,000 ?2-3 WEEKS 500-10,000 ? 3-4 WEEKS 1,000-50,000 ?? 4-5 WEEKS 10,000-100,000 5-6 WEEKS 15,000-200,000 6-8 WEEKS 10,000-100,000 2-3 MONTHS Specimen (Source)Anatomical Location / LateralityCollection Method / Volume Collection TimeReceived Time05/17/2025 2:16 PM EDT1 2:17 PM EDT Narrative CLINISYNC - 05/17/2025 3:02 PM EDT Authorizing ProviderResult TypeResult StatusCorey Magen DOCLINISYNCFinal Result Performing OrganizationAddressCity/State/ZIP CodePhone Number [facility] * ALL THYROID STIM HORMONE (05/17/2025 2:16 PM EDT)ComponentValueRef RangeTest MethodAnalysis TimePerformed AtPathologist SignatureTHYROID STIMULATING HORMONE1.7000.358 - 3.740 uIU/mLTBHSpecimen (Source)Anatomical Location / LateralityCollection Method / VolumeCollection TimeReceived Time05/17/2025 2:16 PM EDT1 2:17 PM EDT Narrative CLINISYNC - 05/17/2025 3:02 PM EDT Authorizing ProviderResult TypeResult StatusCorey Magen DOCLINISYNCFinal Result Performing OrganizationAddressCity/State/ZIP CodePhone Number [facility] * MLR HEMOGLOBIN A1C (05/17/2025 2:16 PM EDT)ComponentValueRef RangeTest Method Analysis TimePerformed AtPathologist SignatureGLYCOHEMOGLOBIN A1C4.84.5 - 6.2 %TBHComment: ADA RECOMMENDED LIMIT 4.0 - 6.0 ADA THERAPEUTIC TARGET < 7.0 ACTION SUGGESTED > 7.0 ESTIMATED AVERAGE XMRJTOO93zp/dLTBHSpecimen (Source)Anatomical Location / LateralityCollection Method / VolumeCollection TimeReceived Time05/17/2025 2:16 PM EDT1 2:17 PM EDT Narrative CLINISYNC - 05/17/2025 2:49 PM EDT Authorizing ProviderResult TypeResult StatusCorey Magen DOCLINISYNCFinal Result Performing OrganizationAddressCity/State/ZIP CodePhone Number [facility]HELLIEFORMERLY [facility] * (ABNORMAL) ALL CBC WITH AUTO DIFF (05/17/2025 2:16 PM EDT)ComponentValueRef RangeTest MethodAnalysis TimePerformed AtPathologist SignatureTBH WBC9.44.0 - 11.0 10 3/uLTBHTBH RBC4.08(L)4.20 - 5.40 10 6/uLTBHTBH HGB12.412.0 - 16.0 g/dL TBHTBH HCT37.736.0 - 48.0 %TBHTBH MCV92.481.0 - 99.0 fLTBHTBH MCH30.426.7 - 34.0 pgTBHTBH MCHC32.929.9 - 35.2 g/dLTBHTBH RDW12.511.0 - 15.0 %TBHTBH BVD689 150 - 450 10 3/uLTBHTBH MPV9.1(L)9.5 - [...] Magen DOCLINISYNCFinal Result Performing OrganizationAddressCity/State/ZIP CodePhone Number [facility]YFORMERLY [facility] documented in this encounter Visit Diagnoses Not on filedocumented in this encounter Care Teams Team MemberRelationshipSpecialtyStart DateEnd Date Jessie Chery MD [address] [facility] [address] [place] [address] PCP - Estefania [facility]10/20/20 Jessie Chery MD [address] [facility] [address] [place] [address] [facility] - [facility]02/07/23documented as of this encounter
--- OUTSIDE RECORDS SUMMARY | 2025-05-17 19:59 | XMS_ITS | Encounter Summary ---
Author Organization [facility] Address [address] [facility] [place] [address] Care Team Providers Care Clinical Tech Name Role Phone Jessie Chery MD Unavailable Jessie Chery MD Primary Care Provider [phone] Encounter Details DateTypeDepartmentCare Team (Latest Contact Info)Zcyabnzxgqe62/27/2025amboo flowsheet [facility] [address] [place] [address] Paco Us DO [address] [place] [id number] Social History Tobacco UseTypesPacks/DayYears UsedDateSmoking Tobacco: FormerCigarettes Smokeless Tobacco: Never Comments:Smokes 5 or less pe r day Alcohol UseStandard Drinks/WeekCommentsNot Tknxhodvu00 (1 standard drink = 0.6 oz pure alcohol)coffee, tea 2-3 cups per daySocial Connection and Isolation PanelAnswerDate RecordedIn a typical week, how many times do you talk on the phone with family, friends, or neighbors?Once a week10/02/2023How often do you get together with friends or relatives?Patient eokkshus55/13/2024How often do you attend anabaptist or taoist services?Patient kwuwrbtc63/13/2024o you belong to any clubs or organizations such as anabaptist groups, unions, fraternal or athletic groups, or school groups?No10/02/2023How often do you attend meetings of the clubs or organizations you belong to?Patient olqxbrbb10/13/2024re you , , , , never , or living with a partner? Living with hkzulxg6610/02/2023UDIT-CAnswerDate RecordedQ1: How often do you have a [...] care, and heating?Somewhat hard10/02/2023HQ-2AnswerDate RecordedPatient Health Questionnaire-2 Xntpe452Finamerican fork hospital [place] of Occupational Health - Occupational Stress QuestionnaireAnswerDate [...] InformationValueDate RecordedSex Assigned at BirthNot on fileLegal MkrPhrmqk30/15/2023 6:45 PM EDTGender Identity Not on fileSexual OrientationNot on filedocumented as of this encounter Plan of Treatment DateTypeDepartmentCare Team (Latest Contact Info)Zvexywjobdc80/24/2025 9:30 AM ESTProcedure Visit [facility] [address] [place] [place] [address] Paco Us DO [address] [place], [place] [id number] documented as of this encounter Visit Diagnoses Not on filedocumented in this encounter Care Teams Team MemberRelationshipSpecialtyStart DateEnd Date Jessie Chery MD [address] [facility] [address] [place] [address] PCP - Estefania Hazel10/20/20 Jessie Chery MD [address] [facility] [address] [place] [address] PCP - GeneralFamily Medicine02/07/23documented as of this encounter
== END 2025-05-17 19:55 | disposition home or self-care (01) ==
LOC: LAB 19:54
PROVIDERS: PCP Family Medicine; Visit Provider Obstetrics & Gynecology
DX: Z01.419 Encounter for gynecological examination (general) (routine) without abnormal findings (principal)

== ENCOUNTER 2025-06-01 06:51 | Outpatient (OUT) | payer BC, SELFPAY ==
--- OUTSIDE RECORDS SUMMARY | 2025-06-01 06:53 | XMS_ITS | Clinical Summary ---
Author Organization [facility] Healthcare Address [address] [place] [address] Care Team Providers Care Installer Apprentice Name Role Phone Jessie Chery MD Unavailable Jessie Chery MD Primary Care Provider [phone] Allergies Active AllergyReactionsCriticalityNoted EitmQwxqxpfoKqkbmvzxdv77/08/2020 Other Reaction(s): Unknown Reaction Medications MedicationSigDispense QuantityRefillsLast [...] tablet (0.5 mg) before bedtime. 60 tablet /5Active HYDROcodone-acetaminophen ([place]) 5-325 MG tablet Indications:SacroiliitisTake 1 tablet by mouth 2 (two) times a day as needed for moderate pain or severe pain 60 tablet 5Active clonazePAM (KlonoPIN) 0.5 MG tablet Indications:Adjustment disorder with anxietyTake 1 tablet (0.5 mg) by mouth in the morning and 1 tablet (0.5 mg) before bedtime. 60 tablet Discontinued(Reorder) HYDROcodone-acetaminophen ([place]) 5-325 MG tablet Indications:SacroiliitisTake 1 tablet by mouth 2 (two) times a day as needed for moderate pain or severe pain 60 tablet Discontinued(Reorder) Active Problems ProblemNoted DateDiagnosed DateIrregular periods/menstrual qofisi8203/30/2025 Dxcnasdff07/17/2025 Assessment & Plan (01/05/2025 3:25 PM EDT): D/W patient risks and benefits of steroid injection. Dimpling at site of injection, Increased sugars potentially if Diabetic, Avascular necrosis. Patient has had in past with no adverse reaction. Answered all questions about steroid shot. Screening for thyroid /18/2025 Assessment & Plan (10/06/2024 3:39 PM EDT): Check labs Benign essential zvlyzjohdcnu60/18/2025 Assessment & Plan (10/06/2024 3:39 PM EDT): [...] prescribed. DASH diet handouts Adjustment disorder with xfsqhps5612/31/2022 Assessment & Plan (03/30/2025 3:35 PM EDT): [...] distances while on medicines. Alcohol dependence, in /12/2023 Assessment & Plan (01/05/2025 3:22 PM EDT): [...] trigger points Had work up 12 years Repsdmhwkr89/12/2023ipolar gjyqwdrm76/12/2023 Assessment & Plan (03/30/2025 3:43 PM EDT): [...] (10/07/2023 1:33 PM EDT): Consider ADD Cervical btpfyzxbx21/12/2023ervical stenosis (uterine cervix)12/31/2022 Yfbeqocwzvby43/12/2023Endometriosis determined by nunnlwssceg66/12/2023 Gastroesophageal reflux disease without katcxergwbu13/12/2023Lumbago with sciatica, right side12/31/2022Menorrhagia with regular cycle12/31/2022ain in female genitalia on /12/2023rimary dpwxejzu23/12/2023Sciatica of left side12/31/20225626Shvgwvzwqjaa26/12/2023 Assessment & Plan (07/20/2024 9:28 AM EST): [...] was reviewed for this patient. Seasonal allergic oegwcvxa51/12/8832Tmumxs38/12/2023Spondylolisthesis at L5-S1 level12/31/2022 Assessment & Plan (01/05/2025 [...] reviewed for this patient. Spondylolysis of lumbosacral hqrkbx2312/31/2022 Assessment & Plan (05/05/2024 3:37 PM EDT): [...] OARRS Report was reviewed for this patient. Mxesgeksxrcyw11/12/2023History of cervical fmakbfdyf19/17/2020 Encounters DateTypeDepartmentCare WtcwUczltdlcpge95/05/2025[facility] [address] [facility] [address] [place] [address] Jessie Chery MD Omslakgumlvc11/31/2025Refill [facility] [address] [facility] [address] [place] [address] Jessie Chery MD Adjustment disorder with vmmqrjg9005/17/2025 1:10 PM EDTConsult [facility] [address] [place] [address] [place] [phone] Paco Us, DO Well woman exam with routine gynecological exam; Encounter for screening mammogram for malignant neoplasm of breast; Excessive menstruation with irregular cycle; Request for nsugbekfidybk51/27/2025linisync Result Encounter [facility] External Department Unsolicited MagenPaco, DO 05/17/2025amboo flowsheet [facility] [address] [place] [address] [place] [address] MagenPaco colunga, DO 05/16/20259672Kprzdk82/06/2025Refill [facility] [address] [place] [address] [place] [phone] Jessie Chery MD Ymnstgbxvaax77/02/2025[facility] [address] [place] [phone] Jessie Chery MD Adjustment disorder with tlpplal9403/30/2025 3:30 PM EDTOffice Visit [facility] [address] [place] [phone] Jessie Chery MD Adjustment disorder with anxiety (Primary Dx); Irregular periods/menstrual cycles; Bipolar disorder, in full remission, most recent episode mixed ([facility])03/30/2025 Ihabls1003/25/2025[facility] [address] [place] [phone] Maria Esther Jones PA Hlrmtxivcogr75/04/2025[facility] [address] [place] [place] [phone] Jessie Chery MD Adjustment disorder with idbrgtm1703/25/2025Travelfrom Last 3 Months Immunizations ImmunizationAdministration DatesNext DueInfluenza, injectable, quadrivalent 06/20/2021Influenza, injectable, quadrivalent, preservative free05/09/2022, 05/21/2020Influenza, seasonal, coqbmfbzmz85/24/2014Influenza, seasonal, intradermal, preservative free05/16/2015 Family History Medical HistoryRelationNameCommentsArthritisFatherJim ZoellnerOvarian cancer Father's SisterProstate cancerMaternal GrandfatherRelationNameStatusComments FatherJim ZoellnerAliveFather's Sisterin early 20's due to estrogenMaternal GrandfatherMotherAlive Social History Tobacco UseTypesPacks/DayYears UsedDateSmoking Tobacco: FormerCigarettes Smokeless Tobacco: Never Tobacco Cessation:Counseling Given: Not Answered Comments:Smokes 5 or less per day Alcohol UseStandard Drinks/WeekCommentsNot Rgkeorcaz26 (1 standard drink = 0.6 oz pure alcohol)coffee, tea 2-3 cups per daySocial Connection and Isolation PanelAnswerDate RecordedIn a typical week, how many times do you talk on the phone with family, friends, or neighbors?Once a week10/02/2023How often do you get together with friends or relatives?Patient lvzlnsio34/13/2024How often do you attend christianity or mosque services?Patient audglong68/13/2024o you belong to any clubs or organizations such as christianity groups, unions, fraternal or athletic groups, or school groups?No10/02/2023How often do you attend meetings of the clubs or organizations you belong to?Patient zpolprzl77/13/2024re you , , , , never , or living with a partner? Living with kqqpsxv2510/02/2023UDIT-CAnswerDate RecordedQ1: How often do you have a [...] care, and heating?Somewhat hard10/02/2023HQ-2AnswerDate RecordedPatient Health Questionnaire-2 Ybpqn959Finkane [place] human [facility] [place] of Occupational Health - Occupational Stress QuestionnaireAnswerDate [...] steady place to sleep or slept in [facility] (including now)?No 10/02/2023CommentsNoSex and Gender InformationValueDate RecordedSex Assigned at BirthNot on fileLegal EnoHayxbp95/15/2023 6:45 PM EDTGender Identity Not on fileSexual OrientationNot on file Last Filed Vital Signs Vital SignReadingTime TakenCommentsBlood Ssrepkmb184/7010 1:08 PM EDT Jzdwh9560 3:27 PM EDTTemperature--Respiratory Rate--Oxygen Xibzronlvp67% 03/30/2025 3:27 PM EDTInhaled Oxygen Concentration--Vqieod06.5 kg (155 lb 8 oz) 05/17/2025 1:08 PM NDEMrlzpd680.6 cm (5' 4 )05/17/2025 1:08 PM EDTBody Mass Index26.6905/17/2025 1:08 PM EDT Plan of Treatment DateTypeDepartmentCare Team (Latest Contact Info)Prsbvlxaizo22/24/2025 9:30 AM ESTProcedure Visit [facility] [address] [facility] [place] [address] Paco Us DO [address] [facility] [address] [place], [place] [phone] 06/29/2025 3:30 PM ESTOffice Visit [facility] [place] [facility] [address] [facility] [address] [place] [phone] Jessie Chery MD [address] [facility] [address] [place], [place] [phone] Health MaintenanceDue DateLast DoneCommentsCT Iwlzycdnahvb90/17/1979FIT-DNA 1978FIT1978FOBT1978Otjolmvzuqcto07/17/1979Pneumococcal Vaccine: Pediatrics (0 to 5 Years) and At-Risk Patients (6 to 64 Years) (1 of 2 - PCV)1997Pap Smear12/06/19998163Gghfcfzuqqq39/21/202505/, 12/09/2014 Colorectal Cancer Tdlldswqq71/21/2025COVID-19 Vaccine (2 - 2024- season) Influenza Vaccine (#1)/, 06/20/2021, 05/21/2020, Additional history axmizyQnsxryssb72/12/202511/06/2024, 03/16/2019, 03/16/2019Cervical Cancer Kcxyjvloe92/12/2026HPV/Xamdlb46 Procedures Procedure NamePriorityDate/TimeAssociated DiagnosisCommentsALL DSIOKNBIQOKOYJUPAAGAFDDgzzxke24/27/2025 2:16 PM EDT TBH XWEQJXKEXZqvkmmk05/27/2025 2:16 PM EDT ALL FOLLICLE STIMULATING RLHJVLVDdgbxnk01/27/2025 2:16 PM EDT ALL LUTEINIZING ZCCLBJWPpwstoq49/27/2025 2:16 PM EDT ALL DHEA MSROVWEVgqunbo50/27/2025 2:16 PM EDT ALL THYROXINE (T4) GNASBdnvbof58/27/2025 2:16 PM EDT TBH PREG QUANT HESGismypz69/27/2025 2:16 PM EDT ALL THYROID STIM MDTWQOLVfoqkyo80/27/2025 2:16 PM EDT MLR HEMOGLOBIN J6KGpooixp83/27/2025 2:16 PM EDT ALL CBC WITH AUTO OODCHoxtlss17/27/2025 2:16 PM EDT IGP,APTIMA HPV,AGE BRXWLcqjcqk75/27/2025 1:11 PM EDT BI MAMMOGRAM SCREENING TOMOSYNTHESIS LPIXIMGMTIoyiquj34/12/2024 4:08 PM EST Encounter for screening mammogram for malignant neoplasm of breast THINPREP TIS PAP REFLEX HPV MRNA E6/E7 (24092)Znuhdqe7001/30/2021 CQQLCGHWWGJOtcapfn33/21/2015 12:00 PM EDT from Last 3 Months or Most Recently Relevant to Health Maintenance Results * [facility] PROLACTIN (05/17/2025 2:16 PM EDT)ComponentValueRef RangeTest Method Analysis TimePerformed AtPathologist SignaturePROLACTIN7.54.8 - 33.4 ng/mLTBH Comment: Performed at: ??CB - [facility] [place] [address] [facility], [place], [place] ??[id number] District Extension Service Agent: Cayetano Sy PhD, Phone: ??[phone] Specimen (Source)Anatomical Location / LateralityCollection Method / Volume Collection TimeReceived Time10/ 2:16 PM EDT1 2:17 PM EDT Narrative CLINISYNC - 05/18/2025 12:09 PM EDT Authorizing ProviderResult TypeResult StatusCorey Magen DOCLINISYNCFinal Result Performing OrganizationAddressCity/State/ZIP CodePhone Number ROHAN [facility] * [facility] PREG QUANT HCG (05/17/2025 [...] PM EDT Authorizing ProviderResult TypeResult StatusCorey Magen RENLINISYNCFinal Result Performing OrganizationAddressCity/State/ZIP CodePhone Number [facility]AN [facility] * MLR HEMOGLOBIN A1C (05/17/2025 2:16 PM EDT)ComponentValueRef RangeTest Method Analysis TimePerformed AtPathologist SignatureGLYCOHEMOGLOBIN A1C4.84.5 - 6.2 %TBHComment: ADA RECOMMENDED LIMIT 4.0 - 6.0 ADA THERAPEUTIC TARGET < 7.0 ACTION SUGGESTED > 7.0 ESTIMATED AVERAGE BPEQWQU68bm/dLTBHSpecimen (Source)Anatomical Location / LateralityCollection Method / VolumeCollection TimeReceived Time05/17/2025 2:16 PM EDT1 2:17 PM EDT Narrative CLINISYNC - 05/17/2025 2:49 PM EDT Authorizing ProviderResult TypeResult StatusCorey Magen DOCLINISYNCFinal Result Performing OrganizationAddressCity/State/ZIP CodePhone Number [facility] * ALL THYROXINE (T4) FREE (05/17/2025 2:16 PM EDT)ComponentValueRef RangeTest MethodAnalysis TimePerformed AtPathologist SignatureFREE T40.810.76 - 1.46 ng/dLTBHSpecimen (Source)Anatomical Location / LateralityCollection Method / VolumeCollection TimeReceived Time05/17/2025 2:16 PM EDT1 2:17 PM EDT Narrative CLINISYNC - 05/17/2025 3:03 PM EDT Authorizing ProviderResult TypeResult StatusCorey [facility] DOCLINISYNCFinal Result Performing OrganizationAddressty/State/ZIP CodePhone Number [facility] * ALL THYROID STIM HORMONE (05/17/2025 2:16 PM EDT)ComponentValueRef RangeTest MethodAnalysis TimePerformed AtPathologist SignatureTHYROID STIMULATING HORMONE1.7000.358 - 3.740 uIU/mLTBHSpecimen (Source)Anatomical Location / LateralityCollection Method / VolumeCollection TimeReceived Time05/17/2025 2:16 PM EDT1 2:17 PM EDT Narrative CLINISYNC - 05/17/2025 3:02 PM EDT Authorizing ProviderResult TypeResult StatusCorey [facility] DOCLINISYNCFinal Result Performing OrganizationAddExcela Health/[facility]/ZIP CodePhone Number [facility] * ALL LUTEINIZING HORMONE (05/17/2025 2:16 PM EDT)ComponentValueRef RangeTest MethodAnalysis TimePerformed AtPathologist SignatureLUTEINIZING HORMONE(LH)9.4 . mIU/mLTBHComment: ? Adult Female ?Range ?Follicular phase ?2.4 - ??12.6 ?Ovulation phase ?14.0 - ??95.6 ?Luteal phase ?1.0 - ??11.4 ?Postmenopausal ?7.7 - ??58.5 Specimen (Source)Anatomical Location / LateralityCollection Method / Volume Collection TimeReceived Time05/17/2025 2:16 PM EDT1 2:17 PM EDT Narrative CLINISYNC - 05/18/2025 12:09 PM EDT Authorizing ProviderResult TypeResult StatusCorey Magen DOCLINISYNCFinal Result Performing OrganizationAddressCity/State/ZIP CodePhone Number [facility] * ALL FOLLICLE STIMULATING HORMONE (05/17/2025 2:16 PM EDT)ComponentValueRef RangeTest MethodAnalysis TimePerformed AtPathologist SignatureFSH6.0. mIU/mL TBHComment: ? Adult Female ? Range ?Follicular phase ?3.5 - ??12.5 ?Ovulation phase ? 4.7 - ??21.5 ?Luteal phase ?1.7 - ?? 7.7 ?Postmenopausal ? 25.8 - 134.8 Specimen (Source)Anatomical Location / LateralityCollection Method / Volume Collection TimeReceived Time05/17/2025 2:16 PM EDT1 2:17 PM EDT Narrative CLINISYNC - 05/18/2025 12:09 PM EDT Authorizing ProviderResult TypeResult StatusCorey Magen DOCLINISYNCFinal Result Performing OrganizationAddressCity/State/ZIP CodePhone Number [facility] * ALL DHEA SULFATE (05/17/2025 2:16 PM EDT)ComponentValueRef RangeTest Method Analysis TimePerformed AtPathologist SignatureDHEA-UJUGPJZ14.141.2 - 243.7 ug/dLTBHSpecimen (Source)Anatomical Location / LateralityCollection Method / VolumeCollection TimeReceived Time05/17/2025 2:16 PM EDT1 2:17 PM EDT Narrative CLINISYNC - 05/18/2025 12:09 PM EDT Authorizing ProviderResult TypeResult StatusCorey Magen DOCLINISYNCFinal Result Performing OrganizationAddressCity/State/ZIP CodePhone Number [facility] * ALL DEHYDROEPIANDROSTERONE (05/17/2025 2:16 PM EDT)ComponentValueRef RangeTest MethodAnalysis TimePerformed AtPathologist SignatureDHEA, CUSXL6522 - 701 ng/dLTBHComment: This test was developed and its performance characteristics determined by [facility]. It has not been cleared or approved by the Food and Drug Administration. Performed at: ?? - [address] ??[id number] District Extension Service Agent: Deo Schaefer MD, Phone: ??[phone] Specimen (Source)Anatomical Location / LateralityCollection Method / Volume Collection TimeReceived Time05/17/2025 2:16 PM EDT1 2:17 PM EDT Narrative CLINISYNC - 05/26/2025 2:07 AM EST Authorizing ProviderResult TypeResult StatusCorey Magen DOCLINISYNCFinal Result Performing OrganizationAddCrozer-Chester Medical Centerty/State/ZIP CodePhone Number [facility] * (ABNORMAL) ALL CBC WITH AUTO DIFF (05/17/2025 2:16 PM EDT)ComponentValueRef RangeTest MethodAnalysis TimePerformed AtPathologist SignatureTBH WBC9.44.0 - 11.0 10 3/uLTBHTBH RBC4.08(L)4.20 - 5.40 10 6/uLTBHTBH HGB12.412.0 - 16.0 g/dL TBHTBH HCT37.736.0 - 48.0 %TBHTBH MCV92.481.0 - 99.0 fLTBHTBH MCH30.426.7 - 34.0 pgTBHTBH MCHC32.929.9 - 35.2 g/dLTBHTBH RDW12.511.0 - 15.0 %TBHTBH IBS798 150 - 450 10 3/uLTBHTBH MPV9.1(L)9.5 - [...] Magen DOCLINISYNCFinal Result Performing OrganizationAddressCity/State/ZIP CodePhone Number [facility]NC [facility] * (ABNORMAL) IGP,APTIMA HPV,AGE GDLN (05/17/2025 1:11 PM EDT)ComponentValueRef RangeTest MethodAnalysis TimePerformed AtPathologist SignatureAGE GDLN ACOG TESTINGNote.TBHComment: ?? TESTS ? RESULT ??FLAG ??UNITS ?REF RANGE ??LAB ?? Clinician Provided Cytology Information ?? Source.............Cervix;Endocervix ?? No. of containers..01 ThinPrep Vial Age Algo ACOG Debbie... ??30-65 ? 01 ?FLAG LEGEND: ?L-Low Normal,H-High Normal,LL-Alert Low,HH-Alert High <-Panic Low,>-Panic High,A-Abnormal,AA-Critical Abnormal Performed at: 01 =G ?[facility] [place] ?? [address] [place], [place] ??[phone] ?? Yola Beyer MD, IGP, APTIMA HPV, RFX 16/18,45Note.TBHComment: ?? TESTS ? RESULT ??FLAG ??UNITS ?REF RANGE ??LAB DIAGNOSIS: ?02 ?? NEGATIVE FOR INTRAEPITHELIAL LESION OR MALIGNANCY. ?? REACTIVE CELLULAR CHANGES AND/OR REPAIR ARE PRESENT. Specimen adequacy: ?02 ?? Satisfactory for evaluation. ??Endocervical and/or squamous metaplastic ?? cells (endocervical component) are present. Performed by: ? 02 ?? Ashley Rubin, Corporate Lawyer (ASCP) Electronically si... ?02 ?? Yola Beyer MD, Pathologist . ? 02 Note: ? Note ?02 ?? The Pap smear is a screening test designed to aid in the ?? detection of premalignant and malignant conditions of the ?? uterine cervix. ??It is not a diagnostic procedure and ?? should not be used as the sole means of detecting cervical ?? cancer. ??Both false-positive and false-negative reports do ?? occur. Test Methodology: ? Note ?02 ?? This liquid based ThinPrep(R) pap test was interpreted ?? using the Cloutex(R) Genius(TM) Cervical Algorithm whole ?? slide imaging system. HPV Genotype Reflex ?? Note ?02 ?? Criteria met, see HPV Genotype results. ?FLAG LEGEND: ?L-Low Normal,H-High Normal,LL-Alert Low,HH-Alert High <-Panic Low,>-Panic High,A-Abnormal,AA-Critical Abnormal Performed at: 02 WB ?[facility] ?? [address] [place], [place] ??[phone] ?? Yola Beyer MD, HPV APTIMAPositive(A)NegativeTBHComment: This nucleic acid amplification test detects fourteen high- risk HPV types (16,18,31,33,35,39,45,51,52,56,58,59,66,68) without differentiation. HPV GENOTYPE 16NegativeNegativeTBHHPV GENOTYPE 18,45NegativeNegativeTBHComment: Performed at: ??=G - [facility] ??[id number] District Extension Service Agent: Yola Beyer MD, Phone: ??[phone] Performed at: ??WB - [facility] ??[id number] District Extension Service Agent: Yola Beyer MD, Phone: ??[phone] Specimen (Source)Anatomical Location / LateralityCollection Method / Volume Collection TimeReceived Time05/17/2025 1:11 PM EDT1 7:52 PM EDT Narrative ROHAN - 05/26/2025 9:07 PM EST BRUSH-SPATULA CERVIX ENDOCERVIX Authorizing ProviderResult TypeResult StatusCorey Magen LEE BLOOD ORDERABLES Final ResultPerforming OrganizationAddressCity/State/ZIP CodePhone Number ROHAN [facility] * Bilateral [...] THINPREP TIS PAP REFLEX HPV MRNA E6/E7 (03525) (01/30/2021)ComponentValueRef RangeTest MethodAnalysis TimePerformed AtPathologist SignatureCLINICAL INFORMATION:Normal examNOMS LEGACY EXTERNAL LABLMP:01/20/21[facility] LEGACY EXTERNAL LABPREV. PAP:NL PER PT 2018[facility] LEGACY EXTERNAL LABPREV. BX:NANOMS LEGACY EXTERNAL LABSOURCE:EndocervixNOMS LEGACY EXTERNAL LABSTATEMENT OF ADEQUACY:SEE COMMENTNOMS LEGACY EXTERNAL LABComment: Satisfactory for evaluation. Endocervical/transformation zone component absent. INTERPRETATION/RESULT:Negative for intraepithelial lesion or malignancy.[facility] LEGACY EXTERNAL LABCOMMENT:This Pap test has been evaluated with computer assisted technology.[facility] LEGACY EXTERNAL LABCYTOTECHNOLOGIST:SEE COMMENTSee Note:[facility] LEGACY EXTERNAL LABComment: Reference Range: ZL, CT(ASCP) CT screening location: [place] [address]. COMMENTSEE COMMENTNOMS LEGACY EXTERNAL LABComment: EXPLANATORY NOTE: [...] Narrative 12/09/2014 12:00 PM EDT PERFORMED AT [facility] LOCATION:[id number] external hemorrhoids Procedure Note CONVERSION, GENERIC - 12/06/[address] [facility] LOCATION:[id number] external hemorrhoids Authorizing ProviderResult TypeResult StatusJessie Chery MDENDOSCOPY PROCEDURE ORDERABLESFinal Result from Last 3 Months or Most Recently Relevant to Health Maintenance Insurance Care Teams Team MemberRelationshipSpecialtyStart DateEnd Date Jessie Chery MD [address] [facility] [address] [place] [address] PCP - [facility]10/20/20 Jessie Chery MD [address] [facility] [address] [place] [address] [facility]
--- OUTSIDE RECORDS SUMMARY | 2025-06-01 06:53 | XMS_ITS | Encounter Summary ---
Author Organization [facility] Address [address] [place] [address] Care Team Providers Care Pumper Head Name Role Phone Jessie Chery MD Unavailable Jessie Chery MD Primary Care Provider [phone] Reason for Visit * ReasonOnset DateCommentsMed Ahwkqs3305/21/2025 Encounter Details DateTypeDepartmentCare Team (Latest Contact Info)Sxxeskxmnbq96/31/2025Refill [facility] [place] [facility] [address] [place] [address] [place] [address] Jessie Chery MD [address] [place] [address] [place], [place] [phone] Adjustment disorder with anxiety Social History Tobacco UseTypesPacks/DayYears UsedDateSmoking Tobacco: FormerCigarettes Smokeless Tobacco: Never Comments:Smokes 5 or less pe r day Alcohol UseStandard Drinks/WeekCommentsNot Rzxafrjgs21 (1 standard drink = 0.6 oz pure alcohol)coffee, tea 2-3 cups per daySocial Connection and Isolation PanelAnswerDate RecordedIn a typical week, how many times do you talk on the phone with family, friends, or neighbors?Once a week10/02/2023How often do you get together with friends or relatives?Patient ppzaakht03/13/2024How often do you attend yarsani or church services?Patient jgvyqnim27/13/2024o you belong to any clubs or organizations such as yarsani groups, unions, fraternal or athletic groups, or school groups?No10/02/2023How often do you attend meetings of the clubs or organizations you belong to?Patient qwizqfku87/13/2024re you , , , , never , or living with a partner? Living with huvlnbh0810/02/2023UDIT-CAnswerDate RecordedQ1: How often do you have a [...] care, and heating?Somewhat hard10/02/2023HQ-2AnswerDate RecordedPatient Health Questionnaire-2 Cfmxp971F[facility] [place] of Occupational Health - Occupational Stress QuestionnaireAnswerDate [...] InformationValueDate RecordedSex Assigned at BirthNot on fileLegal DacXnopol96/15/2023 6:45 PM EDTGender Identity Not on fileSexual OrientationNot on filedocumented as of this encounter Miscellaneous Notes * Telephone Encounter - GER Retana - 05/21/2025 7:49 AM EDT OARRS reviewed, Rx sent into patient's pharmacy. documented in this encounter Plan of Treatment DateTypeDepartmentCare Team (Latest Contact Info)Iwumfyioncj90/24/2025 9:30 AM ESTProcedure Visit [facility] [address] [facility] [address] [address] Paco Us DO [address] [facility] [place] [address] 06/29/2025 3:30 PM ESTOffice Visit [facility] [place] [address] [facility] [address] [place] [address] Jessie Chery MD [address] [place] [address] [place] [address] documented as of this encounter Visit Diagnoses Diagnosis Adjustment disorder with anxiety documented in this encounter Care Teams Team MemberRelationshipSpecialtyStart DateEnd Date Jessie Chery MD [address] [place] [address] [place] [address] PCP - Estefania Hazel10/20/20 Jessie Chery MD [address] [place] [address] [address] [place] [phone] PCP - GeneralFamily Medicine02/07/23documented as of this encounter
--- OUTSIDE RECORDS SUMMARY | 2025-06-01 06:53 | XMS_ITS | Encounter Summary ---
Author Organization [facility] Address [address] [place] [address] Care Team Providers Care Electronics Technology Instructor Name Role Phone Jessie Chery MD Unavailable Jessie Chery MD Primary Care Provider [phone] Reason for Visit * ReasonOnset DateCommentsMed Rqcxgl5905/26/2025 Encounter Details DateTypeDepartmentCare Team (Latest Contact Info)Ccomopwarpp13/05/2025Refill [facility] [place] [facility] [address] [place] [address] Jessie Chery MD [address] [place], [place] [id number] Sacroiliitis Social History Tobacco UseTypesPacks/DayYears UsedDateSmoking Tobacco: FormerCigarettes Smokeless Tobacco: Never Comments:Smokes 5 or less pe r day Alcohol UseStandard Drinks/WeekCommentsNot Mfhmcdrdq11 (1 standard drink = 0.6 oz pure alcohol)coffee, tea 2-3 cups per daySocial Connection and Isolation PanelAnswerDate RecordedIn a typical week, how many times do you talk on the phone with family, friends, or neighbors?Once a week10/02/2023How often do you get together with friends or relatives?Patient bhdbojxb33/13/2024How often do you attend yazidism or presybeterian services?Patient gojanolu51/13/2024o you belong to any clubs or organizations such as yazidism groups, unions, fraternal or athletic groups, or school groups?No10/02/2023How often do you attend meetings of the clubs or organizations you belong to?Patient zqgnytoo53/13/2024re you , , , , never , or living with a partner? Living with krsalfb1110/02/2023UDIT-CAnswerDate RecordedQ1: How often do you have a [...] care, and heating?Somewhat hard10/02/2023HQ-2AnswerDate RecordedPatient Health Questionnaire-2 Jnyxd696Finjordan [facility] [place] of Occupational Health - Occupational Stress QuestionnaireAnswerDate [...] InformationValueDate RecordedSex Assigned at BirthNot on fileLegal AewYhztqy64/15/2023 6:45 PM EDTGender Identity Not on fileSexual OrientationNot on filedocumented as of this encounter Miscellaneous Notes * Telephone Encounter - Radha Lim - 05/27/2025 1:26 PM EST Scheduled * Telephone Encounter - GER Retana - 05/26/2025 8:55 AM EST Please help pt get set up for controlled medication follow up in June. OARRS reviewed, Rx sent into patient's pharmacy. documented in this encounter Plan of Treatment DateTypeDepartmentCare Team (Latest Contact Info)Dihwfxpzkge37/24/2025 9:30 AM ESTProcedure Visit [facility] [address] [facility] [place] [address] Paco Us DO [address] [facility] [place] [address] 06/29/2025 3:30 PM ESTOffice Visit [facility] [place] [facility] [address] [facility] 110 [place] [address] Jessie Chery MD [address] [facility] 110 [place] [address] documented as of this encounter Visit Diagnoses Diagnosis Sacroiliitis Sacroiliitis, not elsewhere classified documented in this encounter Care Teams Team MemberRelationshipSpecialtyStart DateEnd Date Jessie Chery MD [address] [address] PCP - Estefania Hazel10/20/20 Jessie Chery MD 112 [facility] 110 [place] [address] [facility] - [facility]02/07/23documented as of this encounter
--- OUTSIDE RECORDS SUMMARY | 2025-06-01 06:53 | XMS_ITS | Patient Health Record ---
Author Organization The [facility] [place] Address [address] [place] [address] Support Name Relationship Address Phone Martina Gayle Guarantor Unknown Reason For Referral No Information Immunizations Vaccine Route Administration Date Status Comme nts Flu, Fluzone (46235) 6 mos+, single-dose syringe/vial (6816-0040) Intramuscular 08/14/2013 Pending 90Bgd09 14 09:48AM Plan Of Treatment No Information
--- NOTE | 2025-06-01 06:56 | US_ITS ---
The [address] [address] Patient Name: TRACE LEUNG MRN: [id number] date: 1980 Sex: F Assigned Patient Location: US Current Patient Location: US Accession/Order Number: [id number] Exam Date: 06/01/2025 07:30 Report Date: 06/01/2025 08:50 At the request of: ALEXANDRU [place]M DO Procedure: US pelvis w/ transvaginal ULTRASOUND PELVIS WITH TRANSVAGINAL COMPARISON: None CLINICAL DATA: Chronic menorrhagia Real-time ultrasound evaluation the pelvis was performed utilizing both a transabdominal and transvaginal approach. TRANSABDOMINAL: The urinary bladder is not well distended. Estimated uterine size is approximately 8.5 x 4.3 x 4.7 cm. No focal myometrial abnormalities are identified. The endometrial lining is not well visualized. Neither ovary is seen. TRANSVAGINAL: Transvaginal imaging was performed to better evaluate the uterus and adnexa. By this approach, the myometrium is slightly heterogeneous. There is a hypoechoic area at the mid uterus anteriorly measuring 12 x 8 x 11 mm which might be a fibroid. The endometrial lining is still not well seen though is estimated at 4 - 5 mm. There is a 6 mm nabothian cyst. Neither ovary is identified. There are no cystic or solid adnexal masses. No free fluid is seen. US/US pelvis w/ transvaginal IMPRESSION: NONVISUALIZATION OF THE OVARIES. POSSIBLE UTERINE FIBROID. Impression dictated by: Maria Esther Mobley M.D. 06/01/2025 8:50 AM Dictation Location: [place] [address] Electronically authenticated by: [id number] Y Date: 06/01/2025 08:50
== END 2025-06-01 06:52 | disposition home or self-care (01) ==
LOC: US 06:51
PROVIDERS: PCP Family Medicine; Visit Provider Obstetrics & Gynecology
DX: N92.1 Excessive and frequent menstruation with irregular cycle (principal)
CPT/HCPCS: 76830; 76856

== ENCOUNTER 2025-06-14 12:34 | Outpatient (REF) | payer BC, SELFPAY ==
--- OUTSIDE RECORDS SUMMARY | 2025-06-14 09:30 | XMS_ITS | Encounter Summary ---
Author Organization [facility] Address [address] [facility] [place] [address] Care Team Providers Care Door Core Assembler Name Role Phone Jessie Chery MD Unavailable Jessie Chery MD Primary Care Provider [phone] Reason for Visit * ReasonCommentsEMBXConsult Encounter Details DateTypeDepartmentCare Team (Latest Contact Info)Kuenbjrflny70/24/2025 9:30 AM ESTProcedure Visit [facility] [place] [facility] [address] [facility] [place] [address] Paco Us DO [address] [facility] [address] [place], [facility]11 Dysmenorrhea; Request for sterilization; Abnormal uterine bleeding (AUB) Social History Tobacco UseTypesPacks/DayYears UsedDateSmoking Tobacco: BovzdmRpssgcogxl427 Smokeless Tobacco: Never Tobacco Cessation:Counseling Given: Not Answered Comments:Smokes 5 or less per day Alcohol UseStandard Drinks/WeekCommentsNot Ysdvemhop80 (1 standard drink = 0.6 oz pure alcohol)coffee, tea 2-3 cups per daySocial Connection and Isolation PanelAnswerDate RecordedIn a typical week, how many times do you talk on the phone with family, friends, or neighbors?Once a week10/02/2023How often do you get together with friends or relatives?Patient mjsutenj52/13/2024How often do you attend hindu or yazidi services?Patient /13/2024Do you belong to any clubs or organizations such as hindu groups, unions, fraternal or athletic groups, or school groups?No10/02/2023How often do you attend meetings of the clubs or organizations you belong to?Patient stdqfmis19/13/2024re you , , , , never , or living with a partner? Living with zlkmpuh1910/02/2023UDIT-CAnswerDate RecordedQ1: How often do you have a [...] care, and heating?Somewhat hard10/02/2023HQ-2AnswerDate RecordedPatient Health Questionnaire-2 Vqlej977Finlifepoint hospitals [place] of Occupational Health - Occupational Stress QuestionnaireAnswerDate [...] sleep or slept in ashelter (including now)?No 10/02/2023CommentsNoSex and Gender InformationValueDate RecordedSex Assigned at BirthNot on fileLegal VsvKmisig45/15/2023 6:45 PM EDTGender Identity Not on fileSexual OrientationNot on filedocumented as of this encounter Last Filed Vital Signs Vital SignReadingTime TakenCommentsBlood Eprzjjeu247/7406/14/2025 9:34 AM EST Pulse--Temperature--Respiratory Rate--Oxygen Saturation--Inhaled Oxygen Concentration--Rjbfhg86.9 kg (163 lb)06/14/2025 9:34 AM ESTHeight--Body Mass Index27.9810 1:08 PM EDTdocumented in this encounter Progress Notes * Berna Robertson NP - 06/14/2025 9:30 AM EST Reason for Appointment: Patient ID: Martina Gayle is a 44 y.o. female who presents for EMBX and Consult Patient presents today for a Endometrial Biopsy appointment. MEDICATIONS Current Outpatient Medications Medication Instructions clonazePAM (KLONOPIN) 0.5 mg, Oral, 2 times daily cyclobenzaprine (FLEXERIL) 10 mg, Oral, 3 times daily HYDROcodone-acetaminophen (Hubertus) 5-325 MG tablet 1 tablet, Oral, 2 times daily PRN lamoTRIgine (LAMICTAL) 25 mg, Oral, Daily ALLERGIES Allergies Allergen Reactions Diclofenac Other Reaction(s): Unknown Reaction PROBLEMS Active Ambulatory Problems Diagnosis Date Noted Adjustment disorder with anxiety 12/31/2022 Alcohol dependence, in remission (HCC) 12/31/2022 Other chronic pain 12/31/2022 Amenorrhea 12/31/2022 Bipolar disorder (HCC) 12/31/2022 Cervical arthritis 12/31/2022 Cervical stenosis (uterine cervix) 12/31/2022 Dysmenorrhea 12/31/2022 Endometriosis determined by laparoscopy 12/31/2022 Gastroesophageal reflux disease without esophagitis 12/31/2022 Lumbago with sciatica, right side 12/31/2022 Menorrhagia with regular cycle 12/31/2022 Pain in female genitalia on intercourse 12/31/2022 Primary insomnia 12/31/2022 Sciatica of left side 12/31/2022 Sacroiliitis 12/31/2022 Seasonal allergic rhinitis 12/31/2022 Smoker 12/31/2022 Spondylolisthesis at L5-S1 level 12/31/2022 Spondylolysis of lumbosacral region 12/31/2022 Spondylolysis 12/31/2022 History of cervical dysplasia 10/06/2019 Screening for thyroid disorder 10/06/2024 Benign essential hypertension 10/06/2024 Allergies 01/05/2025 Irregular periods/menstrual cycles 03/30/2025 Resolved Ambulatory Problems Diagnosis Date Noted No Resolved Ambulatory Problems Past Medical History: Diagnosis Date Abnormal Pap smear of cervix Allergic rhinitis Anxiety Bacterial vaginosis Depression Endometriosis 2013 History of alcohol dependence (HCC) History of MRI of lumbar spine 05/21/2019 Popliteal artery 05/02/2022 ([facility]) Urinary tract infection HISTORY PAST MEDICAL HISTORY SOCIAL HISTORY Past Medical History: Diagnosis Date Abnormal Pap smear of cervix Allergic rhinitis Anxiety Bacterial vaginosis Depression Endometriosis 2013 History of alcohol dependence (HCC) sober 2017, some aaa and counseling History of MRI of lumbar spine 05/21/2019 showed anterolisthesis and spondylolysis Popliteal artery 05/02/2022 Normal Popliteal artery and vein, no popliteal cysts ([facility]) x2 Urinary tract infection Social History Tobacco Use Smoking status: Former Current packs/day: 1.00 Average packs/day: 1 pack/day for 15.0 years (15.0 ttl pk-yrs) Types: Cigarettes Smokeless tobacco: Never Tobacco comments: Smokes 5 or less per day Substance Use Topics Alcohol use: Not Currently Alcohol/week: 10.0 - 18.0 standard drinks of alcohol Types: 10 - 18 Standard drinks or equivalent per week Comment: coffee, tea 2-3 cups per day Drug use: Never FAMILY HISTORY Family History Problem Relation Name Age of Onset Arthritis Father Ab Gayle Rheum arthritis Father Ab Gayle Prostate cancer Maternal Grandfather Trevor Jones Cancer Maternal Grandfather Trevor Jones Ovarian cancer Father's Sister Ovarian cancer Mother's Sister Cecilia Jones SURGICAL HISTORY Past Surgical History: Procedure Laterality Date COLONOSCOPY 12/2014 COLPOSCOPY abnormal pap smear CONDYLOMA EXCISION/FULGURATION 1996 DILATION AND CURETTAGE OF UTERUS FEMINIZING AUGMENTATION MAMMOPLASTY 2005 saline LAPAROSCOPY DIAGNOSTIC / BIOPSY / ASPIRATION / LYSIS 2012 for mild endometriosis PELVIC LAPAROSCOPY 2014 Disease: endometriosis REVIEW OF SYSTEMS Review of Systems: Review of Systems Constitutional: Negative. HENT: Negative. Eyes: Negative. Respiratory: Negative. Cardiovascular: Negative. Gastrointestinal: Negative. Genitourinary: Negative. Musculoskeletal: Negative. Skin: Negative. Neurological: Negative. All other systems reviewed and are negative. Hematological: Negative. Endocrine: Negative. Allergic/Immunologic: Negative. OBJECTIVE Objective: Physical Exam Constitutional: Appearance: Normal appearance. She is well-developed. Genitourinary: Vulva normal. Cardiovascular: Rate and Rhythm: Normal rate and regular rhythm. Pulmonary: Effort: Pulmonary effort is normal. Breath sounds: Normal breath sounds. Abdominal: General: Bowel sounds are normal. There is no distension. Palpations: Abdomen is soft. Tenderness: There is no abdominal tenderness. There is no guarding or rebound. Musculoskeletal: General: No swelling. Normal range of motion. Right lower leg: No edema. Left lower leg: No edema. Neurological: Mental Status: She is alert and oriented to person, place, and time. Skin: General: Skin is warm and dry. Psychiatric: Mood and Affect: Mood normal. Behavior: Behavior normal. Vitals and nursing note reviewed. Exam conducted with a hospice director present. Vitals: Estimated body mass index is 27.98 kg/m?? as calculated from the following: Height as of 05/17/25: 5' 4 . Weight as of this encounter: 163 lb. BP: 118/74 Patient's last menstrual period was 03/29/2025 (approximate). ASSESSMENT & PLAN Encounter Diagnosis: ICD-10-CM 1. Dysmenorrhea N94.6 POCT , urine manually resulted Tissue exam 2. Request for sterilization Z30.2 3. Abnormal uterine bleeding (AUB) N93.9 Tissue exam ProceduresAssessment/Plan EMBX: Patient was placed in dorsal lithotomy position with feet in stirrups. A sterile speculum was placed into the vagina and the cervix was visualized. The cervix was grasped with a single tooth tenaculum. The endometrial pipette was placed through the cervix into the uterus, endometrial curettage was performed and sampling was obtained, endometrial curettings were placed in formalin, and single tooth tenaculum was removed. Excellent hemostasis was assured. All instruments were removed from vagina. Follow Up: Patient is to return for preop salpingectomy and ablation. Ultrasound and labs reviewed. Documented by Berna Robertson NP on behalf of: Paco Us DO documented in this encounter Plan of Treatment DateTypeDepartmentCare Team (Latest Contact Info)Mugjapkwapb93/09/2025 3:30 PM ESTOffice Visit [facility] [address] [facility] 110 [place] [address] Jessie Chery MD [address] [facility] 110 [place] [address] 07/26/2025 3:40 PM ESTConsult [facility] [address] [facility] [place] [address] Paco Us DO [address] [facility] [address] [place], [place] [id number] NameTypePriorityAssociated DiagnosesOrder ScheduleTissue examPathology and CytologyRoutine Dysmenorrhea Abnormal uterine bleeding (AUB) Ordered: 06/14/2025documented as of this encounter Procedures Procedure NamePriorityDate/TimeAssociated DiagnosisCommentsPOCT , URINE Xopizcd3806/14/2025 9:44 AM EST Dysmenorrhea documented in this encounter Results * POCT , urine manually resulted (06/14/2025 9:44 AM EST)ComponentValue Ref RangeTest MethodAnalysis TimePerformed AtPathologist SignaturePreg Test, UrNegativeNegativeSpecimen (Source)Anatomical Location / LateralityCollection Method / VolumeCollection TimeReceived XgdoDuscb21/24/2025 9:44 AM EST Narrative Authorizing ProviderResult TypeResult StatusCorey Magen DOPOINT OF CARE TEST ENTER/EDIT ORDERABLESFinal Result documented in this encounter Visit Diagnoses Diagnosis Dysmenorrhea Request for sterilization Abnormal uterine bleeding (AUB) documented in this encounter Care Teams Team MemberRelationshipSpecialtyStart DateEnd Date Jessie Chery MD [address] [facility] 110 [place] [address] PCP - Estefania Hazel10/20/20 Jessie Chery MD [address] [facility] 110 [place] [address] [facility] - [facility]02/07/23documented as of this encounter
--- OUTSIDE RECORDS SUMMARY | 2025-06-15 19:39 | XMS_ITS | Continuity of Care Document ---
Author Organization [facility] Address [address] [place] [address] Phone Care Team Providers Care Farm Operations Manager Name Role Phone Chula Gregg APRN Attending Provider NON STAFF Primary Care Provider Paco Lauren DO Attending Provider Care Teams Patient Care Team Team Status: Active Member Role/Relationship Status Dates NON STAFF Family Provider Active Visit Care Team Team Status: Inactive Member Role/Relationship Status Dates YSABEL Lazar RN FOOTBALL COACH-C Attending Provider Active Start: March End: April 12, 2025NON STAFFPrimary Care ProviderActiveStart: April 12, 2025 End: April 12, 2025NON STAFFFamily ProviderActiveStart: April 12, 2025 End: April 12, 2025 Patient Care Team Team Status: Inactive Member Role/Relationship Status Dates Paco Us DO Attending Provider Active Start : June 14, 2025 End: June 14, 2025 Chief Complaint and Reason for Visit Chief Complaint Admit Date Sinus congestion and ear pain April 12, 2025 9:25am Unknown June 14, 2025 9:30am Reason for Visit Admit Date Sinusitis April 12, 2025 9:25am Contact with or suspected ex posure to severe acute respiratory syndrome April 12, 2025 9:25am Allergies, Adverse Reactions, Alerts Allergen Type Severity Reaction Last Updated Verified Status diclofenac Allergy Unknown Unknown Reactio n, numbness in the hands bilaterally April 12, 2025 8:38am Yes Active Social History Smoking Status Unknown if ever smoked Observation Status Observation Response Date of Response Legal Sex Female (finding) Sex Assigned At BirthFemaleMay 1980 Family History Relationship Condition Age at Onset Recorded Date/T tiffany aunt Family history of other condition Unknown grandparentHistory of malignant neoplasm of prostateUnknown Problems Active Problems Problem Diagnosis/Recorded Date Onset Date Stat us Cellulitis of sidewall of nose January 19, 2025 8:34am U nknown Active Acute pansinusitis April 17, 2024 8:49am Unknown Active Sinusitis April 12, 2025 9:37am Unknown Active Medications Medication Status Dose Units Route Directions Qty Days Refills S tart Date Stop Date End Date Reason(s) Instructions Adherence Hydrocodone-Acetaminophen (N orco) 5-325 mg Tablet Active 1 TAB PO Q6H as needed for Pain July 29, 2019 12:00amUnknownClonazepam (Klonopin) 0.5 mg TabletDiscontinued 0.5MGPOTwice dailyJuly 29, 2019 12:00amSept2024 8:39amIbuprofen 200 mg EhrniyJyycgz354ATCADahv times daily as needed for PainJuly 29, 2019 12:00amUnknownCyclobenzaprine 10 mg tabletActiveMGPOas neededJun2024 11:00pmUnknownSulfamethoxazole-Trimethoprim 800-160 mg baggiuOnyqye8OXVPUUhgfa 12 bvfdj5233Vcgl2024 11:00pmUnknownMupirocin 2 % vywlzqusHldfhz2HNFXEV TOPICALThree times xegij85170Uvsc2024 11:00pmUnknownAmoxicillin-Pot Clavulanate 875-125 mg mtnqdxEmhzrwljxfic9BFZIEMxkfv kouys73575Kxhetxfts 26th, 2024 11:00pmJune 2024 3:56pmLamotrigine 25 mg tabletActiveMGPOSeptember 2024 11:00pmUnknownAmoxicillin-Pot Clavulanate 875-125 mg wdjdowEunvny6SXE POEvery 12 fkeig720Ehfkrluai 21st, 2025 11:00pmUnknown Relevant Diagnostic Tests and/or Laboratory Data Laboratory Results Test Collection Date/Time Result Date/Time Result Interpretation Reference Range Result Comment Performing Site POC SARS CoV-2 Antigen April 12, 2 025 8:49am April 12, 2025 9:06am Negative Influenza Type A (Rapid)April 12, 2025 8:49amSept2024 9:06am NegativeInfluenza Type B (Rapid)April 12, 2025 8:49amSeptember 2024 9:06amNegative Vital Signs Vital Reading Result Reference Range Collection Date/Time Height 64 [in_i] April 12, 2025 8:91duGcusuu20.44 kgSept2024 8:47amBody Rdbcbogfvri66.9 [degF]97.6-99.0Sept2024 8:47amHeart Rate78 /min 60-100pt2024 8:47amRespiratory rate18 /oyv54-75Ljcqvgmjh 22nd, 2025 8:47amOxygen saturation by Pulse tilybrhg34 %95-100April 12, 2025 8:47amBP Ocgcutlw674 mm[Hg]100-140Sept2024 8:47amBP Lcezjwzww30 mm[Hg]60-100Sept2024 8:47amBMI (Body Mass Index)26.6 kg/m9Grpotfuvo2024 8:47am Advance Directives Advance Directive Response Recorded Date/ Time Advance Directives No July 29, 2019 11:48am Insurance Providers Guarantor Biju Dumont Address [address] [place] [address]Esemmhl Info.Home Phone: Coverage Status Update:2025 Payer Group Member ID Coverage Type Subscriber Relationship to Subscriber Effective Date Expiration Date Estefania TERRAZAS Id: [id number] Zoellner , M Id: [id number] [place] [address] Home Phone: Email: [email or web address] Encounters Encounter Location(s) Arrival/Admit Date Discharge/Departure Date Discharge/Departure Disposition Provider(s) Departed Physician/ Provider Office Visit -[facility] April 12, 2025 9:25am April 12, 2025 10:23am Discharged to home care or self care (routine discharge) Chula Gregg APRN Departed Referred -[facility] June 14, 2025 9:30am June 14, 2025 9:31am Discharged to home care or self care (routine discharge) Paco Us Recent Diagnosis Onset Date Admit Date Sinusitis Unknown April 12, 2025 9:25am Contact with or suspected ex posure to severe acute respiratory syndrome Unknown April 12, 2025 9:25am Assessments Diagnosis Onset Date Resolution Status Admit Date Sinusitis acuteSept2024 9:25amContact with or suspected exposure to severe acute respiratory syndromenoneactiveSept2024 9:25am Plan of Treatment Author [facility]ula Gregg [facility] HospitalAuthoredSept2024 9:38amTake antibiotics as prescribed, do not stop early. May take tylenol/motrin OTC prn for pain/fever. Increase oral intake of fluids to thin secretions. Saline nasal spray. May use throat lozenges and warm salt water gargles to alleviate sore throat. Humidified air. If symptoms do not improve in 48 hrs after starting antibiotics instructed patient to come to office for further evaluation. Future Tests Future scheduled test information is unavailable Pending Tests Pending diagnostic test information is unavailable Future Visits Future appointment information is unavailable Future Procedures Future procedure information is unavailable Future Medications Future medication information is unavailable Patient Instructions Patient instructions are unavailable
--- OUTSIDE RECORDS SUMMARY | 2025-06-21 12:37 | XMS_ITS | Encounter Summary ---
Author Organization [facility] Address [address] [place] [address] Care Team Providers Care Spray Pilot Name Role Phone Jessie Chery MD Unavailable Jessie Chery MD Primary Care Provider [phone] Reason for Visit * ReasonOnset DateCommentsMed Mqszfv7806/21/2025 Encounter Details DateTypeDepartmentCare Team (Latest Contact Info)Bhkbhibfdvp41/01/2025Refill [facility] [place] [facility] [address] [place] [address] Maria Esther Jones, GER [address] [place], [place] [id number] Adjustment disorder with anxiety Social History Tobacco UseTypesPacks/DayYears UsedDateSmoking Tobacco: [id number] Smokeless Tobacco: Never Comments:Smokes 5 or less pe r day Alcohol UseStandard Drinks/WeekCommentsNot Nimngnhdf54 (1 standard drink = 0.6 oz pure alcohol)coffee, tea 2-3 cups per daySocial Connection and Isolation PanelAnswerDate RecordedIn a typical week, how many times do you talk on the phone with family, friends, or neighbors?Once a week10/02/2023How often do you get together with friends or relatives?Patient /13/2024How often do you attend jain or mosque services?Patient yvovmnrx90/13/2024o you belong to any clubs or organizations such as jain groups, unions, fraternal or athletic groups, or school groups?No03/13/2024How often do you attend meetings of the clubs or organizations you belong to?Patient zcmrvesb59/13/2024re you , , , , never , or living with a partner? Living with rthqmcu6210/02/2023UDIT-CAnswerDate RecordedQ1: How often do you have a [...] care, and heating?Somewhat hard10/02/2023HQ-2AnswerDate RecordedPatient Health Questionnaire-2 Ojjma893Fin[facility] [place] of [facility] - Occupational Stress QuestionnaireAnswerDate [...] InformationValueDate RecordedSex Assigned at BirthNot on fileLegal TwiDuucqf81/15/2023 6:45 PM EDTGender Identity Not on fileSexual OrientationNot on filedocumented as of this encounter Miscellaneous Notes * Telephone Encounter - GER Retana - 06/21/2025 11:01 AM EST OARRS reviewed, Rx sent into patient's pharmacy. documented in this encounter Plan of Treatment DateTypeDepartmentCare Team (Latest Contact Info)Mllzedaldaz73/09/2025 3:30 PM ESTOffice Visit [facility] [place] [facility] [address] [facility] [address] [place] [phone] Jessie Chery MD [address] [facility] [address] [place] [address] 07/26/2025 3:40 PM ESTConsult [facility] [address] [place] [address] Paco sU DO [address] [place] [address] documented as of this encounter Visit Diagnoses Diagnosis Adjustment disorder with anxiety documented in this encounter Care Teams Team MemberRelationshipSpecialtyStart DateEnd Date Jessie Chery MD [address] [facility] [address] [place] [address] PCP - Estefania Hazel10/20/20 Jessie Chery MD [address] [id number] PCP - GeneralFamily Medicine02/07/23documented as of this encounter
--- OUTSIDE RECORDS SUMMARY | 2025-06-21 12:37 | XMS_ITS | Encounter Summary ---
Author Organization [facility] Address [address] [facility] [place] [address] Care Team Providers Care Customer Solutions Coordinator Name Role Phone Jessie Chery MD Unavailable Jessie Chery MD Primary Care Provider [phone] Encounter Details DateTypeDepartmentCare Team (Latest Contact Info)Bdtkpqstxyp10/19/2025Orders Only [facility] [address] [place] [phone] Radha RedmondWise, MA [address] [facility] [place] [address] Social History Tobacco UseTypesPacks/DayYears UsedDateSmoking Tobacco: FormerCigarettes Smokeless Tobacco: Never Comments:Smokes 5 or less pe r day Alcohol UseStandard Drinks/WeekCommentsNot Meqhpdnsa34 (1 standard drink = 0.6 oz pure alcohol)coffee, tea 2-3 cups per daySocial Connection and Isolation PanelAnswerDate RecordedIn a typical week, how many times do you talk on the phone with family, friends, or neighbors?Once a week10/02/2023How often do you get together with friends or relatives?Patient rjsnyipw50/13/2024How often do you attend scientologist or buddhist services?Patient lmnqdbaa30/13/2024Do you belong to any clubs or organizations such as scientologist groups, unions, fraternal or athletic groups, or school groups?No10/02/2023How often do you attend meetings of the clubs or organizations you belong to?Patient nwlijmym89/13/2024Are you , , , , never , or living with a partner? Living with faphest2510/02/2023UDIT-CAnswerDate RecordedQ1: How often do you have a [...] care, and heating?Somewhat hard10/02/2023HQ-2AnswerDate RecordedPatient Health Questionnaire-2 [id number] [place] of Occupational Health - Occupational Stress QuestionnaireAnswerDate [...] InformationValueDate RecordedSex Assigned at BirthNot on fileLegal XwuXbmjal97/15/2023 6:45 PM EDTGender Identity Not on fileSexual OrientationNot on filedocumented as of this encounter Plan of Treatment DateTypeDepartmentCare Team (Latest Contact Info)Hkntegkxexd33/09/2025 3:30 PM ESTOffice Visit [facility] [place] [facility] [address] [facility] [address] [place] [phone] Jessie Chery MD [address] [facility] [address] [place] [address] 07/26/2025 3:40 PM ESTConsult [facility] [address] [place] [address] Paco Us DO [address] [facility] [address] [place], [place] [id number] documented as of this encounter Procedures Procedure NamePriorityDate/TimeAssociated DiagnosisCommentsPAP TEST, EXTERNAL Valfgak6305/17/2025 12:00 AM EDTdocumented in this encounter Results * (ABNORMAL) PAP TEST, EXTERNAL (05/17/2025 12:00 AM EDT) Narrative Authorizing ProviderResult TypeResult StatusCorey Magen DOLAB CYTOLOGY ORDERABLESFinal ResultPerforming OrganizationAddressCity/State/ZIP CodePhone Number EXTERNAL LAB documented in this encounter Visit Diagnoses Not on filedocumented in this encounter Care Teams Team MemberRelationshipSpecialtyStart DateEnd Date Jessie Chery MD [address] [facility] [address] [place] [address] PCP - [place] [employer]10/20/20 Jessie Chery MD [address] [facility] 110 [place] [address] PCP - GeneralFamily Medicine02/07/23documented as of this encounter
--- OUTSIDE RECORDS SUMMARY | 2025-06-21 12:38 | XMS_ITS | Clinical Summary ---
Author Organization [facility] Healthcare Address [address] [place] [address] Care Team Providers Care Lead Database Administrator Name Role Phone Jessie Bruner MD Unavailable Jessie Bruner MD Primary Care Provider [phone] Allergies Active AllergyReactionsCriticalityNoted LskxSgvabvjgTqbkwyejzt85/08/2020 Other Reaction(s): Unknown Reaction Medications MedicationSigDispense QuantityRefillsLast [...] mg) by mouth Daily 30 tablet 5Active HYDROcodone-acetaminophen (N[place]) 5-325 MG tablet Indications:SacroiliitisTake 1 tablet by mouth 2 (two) times a day as needed for moderate pain or severe pain 60 tablet 5Active clonazePAM (KlonoPIN) 0.5 MG tablet Indications:Adjustment disorder with anxietyTake 1 tablet (0.5 mg) by mouth in the morning and 1 tablet (0.5 mg) before bedtime. 60 tablet /5Active HYDROcodone-acetaminophen ([place]eches) 5-325 MG tablet Indications:SacroiliitisTake 1 tablet by mouth 2 (two) times a day as needed for moderate pain or severe pain 60 tablet 5107/26/2024Discontinued(Reorder) clonazePAM (KlonoPIN) 0.5 MG tablet Indications:Adjustment disorder with anxietyTake 1 tablet (0.5 mg) by mouth in the morning and 1 tablet (0.5 mg) before bedtime. 60 tablet Discontinued(Reorder) Active Problems ProblemNoted DateDiagnosed DateIrregular periods/menstrual hxfqut9403/30/2025 Iznwjnkaq51/17/2025 Assessment & Plan (01/05/2025 3:25 PM EDT): D/W patient risks and benefits of steroid injection. Dimpling at site of injection, Increased sugars potentially if Diabetic, Avascular necrosis. Patient has had in past with no adverse reaction. Answered all questions about steroid shot. Screening for thyroid /18/2025 Assessment & Plan (10/06/2024 3:39 PM EDT): Check labs Benign essential ztivacjdtyiu79/18/2025 Assessment & Plan (10/06/2024 3:39 PM EDT): [...] prescribed. DASH diet handouts Adjustment disorder with wezpomp1312/31/2022 Assessment & Plan (03/30/2025 3:35 PM EDT): [...] distances while on medicines. Alcohol dependence, in mrbjcvtut46/12/2023 Assessment & Plan (01/05/2025 3:22 PM EDT): [...] trigger points Had work up 12 years Qdgbfdscxl09/12/2023ipolar clkqagzs13/12/2023 Assessment & Plan (03/30/2025 3:43 PM EDT): [...] (10/07/2023 1:33 PM EDT): Consider ADD Cervical ddcqunijr82/12/2023ervical stenosis (uterine cervix)12/31/2022 Czydrcvakewj49/12/2023Endometriosis determined by actlintsbxr89/12/2023 Gastroesophageal reflux disease without gehvmqiglfp51/12/2023Lumbago with sciatica, right side12/31/2022Menorrhagia with regular cycle12/31/2022ain in female genitalia on edsijnqkhft78/12/2023rimary nrpjbass84/12/2023Sciatica of left side12/31/20225223Jjqxjppylcar17/12/2023 Assessment & Plan (07/20/2024 9:28 AM EST): [...] was reviewed for this patient. Seasonal allergic vhsisqrp99/12/8526Yjimky34/12/2023Spondylolisthesis at L5-S1 level12/31/2022 Assessment & Plan (01/05/2025 [...] reviewed for this patient. Spondylolysis of lumbosacral yaylmh4212/31/2022 Assessment & Plan (05/05/2024 3:37 PM EDT): [...] OARRS Report was reviewed for this patient. Wvatpwngfsuid06/12/2023History of cervical quggfcvcx89/17/2020 Encounters DateTypeDepartmentCare VdjkFbibrpmaaqi74/01/2025Refill [facility] [address] [place] [address] Maria Esther oJnes PA Adjustment disorder with blacsbx1106/14/2025 9:30 AM ESTProcedure Visit [facility] [place] [address] [place] [phone] Alexandru Us DO Dysmenorrhea; Request for sterilization; Abnormal uterine bleeding (AUB)06/09/2025Orders Only [facility] [place] [address] [place] [phone] Lyubov Redmond MA 06/01/2025linisync Result Encounter NOMS External Department Unsolicited Alexandru Us DO 05/26/2025Refill [facility] [place] [facility] [address] [place] [address] Jessie Bruner MD Bnxtjpgmpeim58/31/2025Refill [facility] [place] [facility] [address] [place] [address] Jessie Bruner MD Adjustment disorder with gmgdjvl6005/17/2025 1:10 PM EDTConsult [facility] [place] [facility] [address] [place] [phone] Alexandru Us, Well woman exam with routine gynecological exam; Encounter for screening mammogram for malignant neoplasm of breast; Excessive menstruation with irregular cycle; Request for rfwegqduxftjm49/27/2025Clinisync Result Encounter NOMS External Department Unsolicited Alexandru Us, DO 5Bamboo flowsheet [facility] [place] [facility] [address] [place] [phone] Alexandru Us, DO 05/16/20253239Vundfc82/06/2025Refill [facility] [place] [facility] [address] [place] [address] Jessie Bruner MD Bfbppxslmubk30/02/2025Refill [facility] [place] [facility] [address] [place] [address] Jessie Bruner MD Adjustment disorder with qbrhlvb5403/30/2025 3:30 PM EDTOffice Visit [facility] [place] [facility] [address] [place] [address] Jessie Bruner MD Adjustment disorder with anxiety (Primary Dx); Irregular periods/menstrual cycles; Bipolar disorder, in full remission, most recent episode mixed (HCC)03/30/2025 Ssthrm7603/25/2025Refill [facility] [place] [facility] [address] [place] [address] Maria Esther Jones PA Koketallkgeo85/04/2025Refill [facility] [place] [facility] [address] [place] [address] Jessie Bruner MD Adjustment disorder with ryistme4403/25/2025Travelfrom Last 3 Months Immunizations ImmunizationAdministration DatesNext DueInfluenza, injectable, quadrivalent 06/20/2021Influenza, injectable, quadrivalent, preservative free05/09/2022, 05/21/2020Influenza, seasonal, qyrqxvomwy46/24/2014Influenza, seasonal, intradermal, preservative free05/16/2015 Family History Medical HistoryRelationNameCommentsArthritisFatherJim ZoellnerRheum arthritis FatherJim ZoellnerOvarian cancerFather's SisterCancerMaternal GrandfatherPaul TrinklProstate cancerMaternal GrandfatherPaul TrinklOvarian cancerMother's SisterMarta TrinklRelationNameStatusCommentsFatherJim ZoellnerAliveFather's Sisterin early s due to estrogenMaternal GrandfatherPaul TrinklMotherAlive Mother's SisterMarta TrinklAlive Social History Tobacco UseTypesPacks/DayYears UsedDateSmoking Tobacco: SokzygCeoegjfcqf584 Smokeless Tobacco: Never Tobacco Cessation:Counseling Given: Not Answered Comments:Smokes 5 or less per day Alcohol UseStandard Drinks/WeekCommentsNot Umwasldlv21 (1 standard drink = 0.6 oz pure alcohol)coffee, tea 2-3 cups per daySocial Connection and Isolation PanelAnswerDate RecordedIn a typical week, how many times do you talk on the phone with family, friends, or neighbors?Once a week10/02/2023How often do you get together with friends or relatives?Patient ufzgdwvy79/13/2024How often do you attend restorationism or jain services?Patient duuqsrxg62/13/2024Do you belong to any clubs or organizations such as restorationism groups, unions, fraternal or athletic groups, or school groups?No10/02/2023How often do you attend meetings of the clubs or organizations you belong to?Patient hxtjansj67/13/2024Are you , , , , never , or living with a partner? Living with yjmnydk3010/02/2023UDIT-CAnswerDate RecordedQ1: How often do you have a [...] care, and heating?Somewhat hard10/02/2023HQ-2AnswerDate RecordedPatient Health Questionnaire-2 Pgyfm851[facility] [place] of Occupational Health - Occupational Stress QuestionnaireAnswerDate [...] steady place to sleep or slept in nobleboroelter (including now)?No 4CommentsNoSex and Gender InformationValueDate RecordedSex Assigned at BirthNot on fileLegal DreBdujjt03/15/2023 6:45 PM EDTGender Identity Not on fileSexual OrientationNot on file Last Filed Vital Signs Vital SignReadingTime TakenCommentsBlood Yjseqoiz344/7411 9:34 AM EST Fgggm295603/30/2025 3:27 PM EDTTemperature--Respiratory Rate--Oxygen Gdivfcsxxe63% 03/30/2025 3:27 PM EDTInhaled Oxygen Concentration--Isxrkb83.9 kg (163 lb) 06/14/2025 9:34 AM UNGKgjmmm324.6 cm (5' 4 )05/17/2025 1:08 PM EDTBody Mass Index27.9805/17/2025 1:08 PM EDT Plan of Treatment DateTypeDepartmentCare Team (Latest Contact Info)Pbcdmwwngsj27/09/2025 3:30 PM ESTOffice Visit N[facility] [place] [facility] [address] [facility] [address] [place] [phone] Jessie Bruner MD [address] [facility] [[email or web address] [address] [place] [address] 07/26/2025 3:40 PM ESTConsult [facility] [place] [facility] [address] [place] [address] Alexandru Us DO [address] [place] [address] Health MaintenanceDue DateLast DoneCommentsCT Aeeuolqtygih85/17/1979FIT-DNA 1978FIT1978FOBT1978 9857Jlvqyhuwrncsr97/17/1979Pneumococcal Vaccine: Pediatrics (0 to 5 Years) and At-Risk Patients (6 to 64 Years) (1 of 2 - PCV)12/05/19978056Ysbsvrjasvc78/21/202505/, 12/09/2014Colorectal Cancer Pjzzvzmjk65/21/2025COVID-19 Vaccine ( season) Influenza Vaccine (#1)/, 06/20/2021, 05/21/2020, Additional history vjcjdeTmidcdcjt19, 03/16/2019, 03/16/2019HPV/Cotest ervical Cancer Hmichlmkz38/27/2028Pap Smear05/17/2028 05/17/2025 Procedures Procedure NamePriorityDate/TimeAssociated DiagnosisCommentsPOCT , URINE Zsgkkpy3706/14/2025 9:44 AM EST Dysmenorrhea US PELVIS W/ NQHUBDRNWFXL93/11/2025 8:50 AM EST ALL UYYZNCBQJLAGXIQSBEYMBHNcvctyk31/27/2025 2:16 PM EDT TB[facility] ISZMAMXTUOliigqh82/27/2025 2:16 PM EDT ALL FOLLICLE STIMULATING ZWFPPMFFtsczht86/27/2025 2:16 PM EDT ALL LUTEINIZING EAPRJZMAosspjw28/27/2025 2:16 PM EDT ALL DHEA EAYMAIUYlyqnsg40/27/2025 2:16 PM EDT ALL THYROXINE (T4) DAYJUrrdtwp43/27/2025 2:16 PM EDT [facility] PREG QUANT JBSRekyayv55/27/2025 2:16 PM EDT ALL THYROID STIM NKPWMMWReueqeg40/27/2025 2:16 PM EDT MLR HEMOGLOBIN Z1RXzqahlw01/27/2025 2:16 PM EDT ALL CBC WITH AUTO GJUTFelwffv57/27/2025 2:16 PM EDT IGP,APTIMA HPV,AGE ACZPEtjncpu12/27/2025 1:11 PM EDT PAP TEST, RJMYKTKGJrkrtqv61/27/2025 12:00 AM EDTBI MAMMOGRAM SCREENING TOMOSYNTHESIS KFMTIXPOFHfmrgmp92/12/2024 4:08 PM EST Encounter for screening mammogram for malignant neoplasm of breast THINPREP TIS PAP REFLEX HPV MRNA E6/E7 (91432)Watkwip7501/30/2021 GRZBTLKHUHADzmfdvn27/21/2015 12:00 PM EDT from Last 3 Months or Most Recently Relevant to Health Maintenance Results * POCT , urine manually resulted (06/14/2025 9:44 AM EST)Component ValueRef RangeTest MethodAnalysis TimePerformed AtPathologist SignaturePreg Test, UrNegativeNegativeSpecimen (Source)Anatomical Location / Laterality Collection Method / VolumeCollection TimeReceived JgfmGvhst91/24/2025 9:44 AM EST Narrative Authorizing ProviderResult TypeResult StatusCorey Magen DOPOINT OF CARE TEST ENTER/EDIT ORDERABLESFinal Result * US PELVIS W/ TRANSVAGINAL (06/01/2025 8:50 AM EST)Anatomical RegionLaterality ModalityOtherSpecimen (Source)Anatomical Location / LateralityCollection Method / VolumeCollection TimeReceived Time06/01/2025 8:50 AM EST Narrative 06/01/2025 8:52 AM EST [facility] ?[address] ? [place] [address] ? Ultrasound Report ? Signed ? Patient: MARTINA LEUNG ?MR#: [id number] ?? : 1980 ?Acct:[id number] ?? Age/Sex: 44 / F ?ADM Date: 06/01/25 ?? Loc: US ? Attending Dr: Alexandru Us D.O. ? Ordering Physician: Alexandru Us D.O. ?? Date of Service: 06/01/25 ?? Procedure(s): US pelvis w/ transvaginal ?? Accession Number(s): [id number] ? cc: JESSIE BRUNER ; Alexandru Us D.O. ? [facility] ? [address] ? [place] [address] ? Patient Name: ?? MARTINA LEUNG ? MRN: [facility]:[id number] ? date: 1980 ?Sex: F ?? Assigned Patient Location: US ?? Current Patient Location: US ?? Accession/Order Number: [id number] ?? Exam Date: 06/01/2025 ??07:30 ?Report Date: 06/01/2025 ??08:50 ? At the request of: ?? ALEXANDRU ??MAGEN ??DO ? Procedure: ??US pelvis w/ transvaginal ? ULTRASOUND PELVIS WITH TRANSVAGINAL ? COMPARISON: None ? CLINICAL DATA: Chronic menorrhagia ? Real-time ultrasound evaluation the pelvis was performed utilizing both a ?? transabdominal and transvaginal approach. ? TRANSABDOMINAL: The urinary bladder is not well distended. ??Estimated uterine ?? size is approximately 8.5 x 4.3 x 4.7 cm. ??No focal myometrial abnormalities ?? are identified. ??The endometrial lining is not well visualized. ??Neither ovary ?? is seen. ? TRANSVAGINAL: Transvaginal imaging was performed to better evaluate the uterus ?? and adnexa. ??By this approach, the myometrium is slightly heterogeneous. ? There is a hypoechoic area at the mid uterus anteriorly measuring 12 x 8 x 11 ?? mm which might be a fibroid. ??The endometrial lining is still not well seen ?? though is estimated at 4 - 5 mm. ??There is a 6 mm nabothian cyst. ??Neither ?? ovary is identified. ??There are no cystic or solid adnexal masses. ??No free ?? fluid is seen. ? US/US pelvis w/ transvaginal ?? IMPRESSION: ? NONVISUALIZATION OF THE OVARIES. ? POSSIBLE UTERINE FIBROID. ? Impression dictated by: Maria Esther Mobley M.D. ??06/01/2025 8:50 AM ? Dictation Location: RADIO-PC-02 ? Electronically authenticated by: [id number] ??Y ?? Date: 06/01/2025 ??08:50 ? Dictated By: ?Maria Esther Mobley M.D. ? Signed By: ?06/01/25 0852 ? DD/ 0850 ? TD/TT: ? Enterprise Application Analyst: Procedure Note Radiology, Radiologist, - 06/01/2025 [place] [address] Ultrasound Report Signed Patient: MARTINA LEUNG MMR#: [id number] : 1980Acct:[id number] Age/Sex: 44 / FADM Date: 06/01/25 Loc: US Attending Dr: Alexandru Us D.O. Ordering Physician: Alexandru Us D.O. Date of Service: 06/01/25 Procedure(s): US pelvis w/ transvaginal Accession Number(s): [id number] cc: JESSIE BRUNER ; Alexandru Us D.O. The [place] [id number] Patient Name: MARTINA LEUNG MRN: [facility]:[id number] date: 1980 Sex: F Assigned Patient Location: US Current Patient Location: US Accession/Order Number: [id number] Exam Date: 06/01/2025 07:30 Report Date: 06/01/2025 08:50 At the request of: ALEXANDRU US DO Procedure: US pelvis w/ transvaginal ULTRASOUND PELVIS WITH TRANSVAGINAL COMPARISON: None CLINICAL DATA: Chronic menorrhagia Real-time ultrasound evaluation the pelvis was performed utilizing both a transabdominal and transvaginal approach. TRANSABDOMINAL: The urinary bladder is not well distended. Estimateduterine size is approximately 8.5 x 4.3 x 4.7 cm. No focal myometrialabnormalities are identified. The endometrial lining is not well visualized. Neitherovary is seen. TRANSVAGINAL: Transvaginal imaging was performed to better evaluate theuterus and adnexa. By this approach, the myometrium is slightly heterogeneous. There is a hypoechoic area at the mid uterus anteriorly measuring 12 x 8 x11 mm which might be a fibroid. The endometrial lining is still not wellseen though is estimated at 4 - 5 mm. There is a 6 mm nabothian cyst. Neither ovary is identified. There are no cystic or solid adnexal masses. Nofree fluid is seen. US/US pelvis w/ transvaginal IMPRESSION: NONVISUALIZATION OF THE OVARIES. POSSIBLE UTERINE FIBROID. Impression dictated by: Maria Esther Mobley M.D. 06/01/2025 8:50 AM Dictation Location: [place] [address] Electronically authenticated by: [id number] Y Date: 508:50 Dictated By: Maria Esther Mobley M.D. Signed By:06/01/2552 DD/ 9 TD/TT: Enterprise Application Analyst: Authorizing ProviderResult TypeResult StatusCorey Magen GELALINISYNC IMAGINGFinal Result * [facility] PROLACTIN (05/17/2025 2:16 PM EDT)ComponentValueRef RangeTest Method Analysis TimePerformed AtPathologist SignaturePROLACTIN7.54.8 - 33.4 ng/mLTBH Comment: Performed at: ??CB - [facility] [address] ??[id number] Salsa Dance Instructor: Cayetano Sy PhD, Phone: ??[phone] Specimen (Source)Anatomical Location / LateralityCollection Method / Volume Collection TimeReceived Time05/17/2025 2:16 PM EDT1 2:17 PM EDT Narrative CLIN[facility] - 05/18/2025 12:09 PM EDT Authorizing ProviderResult TypeResult StatusCorey Magen DOCLINISYNCFinal Result Performing OrganizationAddressCity/State/ZIP CodePhone Number [facility]IN[facility] * [facility] PREG QUANT HCG (05/17/2025 2:16 [...] Magen DOCLINISYNCFinal Result Performing OrganizationAddressCity/State/ZIP CodePhone Number [facility] * MLR HEMOGLOBIN A1C (05/17/2025 2:16 PM EDT)ComponentValueRef RangeTest Method Analysis TimePerformed AtPathologist SignatureGLYCOHEMOGLOBIN A1C4.84.5 - 6.2 %TBHComment: ADA RECOMMENDED LIMIT 4.0 - 6.0 ADA THERAPEUTIC TARGET < 7.0 ACTION SUGGESTED > 7.0 ESTIMATED AVERAGE WSZFUWP33jz/dLTBHSpecimen (Source)Anatomical Location / LateralityCollection Method / VolumeCollection TimeReceived Time05/17/2025 2:16 PM EDT1 2:17 PM EDT Narrative [facility] - 05/17/2025 2:49 PM EDT Authorizing ProviderResult TypeResult StatusCorey Magen DOCLINISYNCFinal Result Performing OrganizationAddRoxborough Memorial Hospitalty/State/ZIP CodePhone Number [facility] * ALL THYROXINE (T4) FREE (05/17/2025 2:16 PM EDT)ComponentValueRef RangeTest MethodAnalysis TimePerformed AtPathologist SignatureFREE T40.810.76 - 1.46 ng/dLTBHSpecimen (Source)Anatomical Location / LateralityCollection Method / VolumeCollection TimeReceived Time05/17/2025 2:16 PM EDT1 2:17 PM EDT Narrative CLIN[facility]NC - 05/17/2025 3:03 PM EDT Authorizing ProviderResult TypeResult StatusCorey Magen DOCLINISYNCFinal Result Performing OrganizationAdd[facility]/State/ZIP CodePhone Number [facility] * ALL THYROID STIM HORMONE (05/17/2025 2:16 PM EDT)ComponentValueRef RangeTest MethodAnalysis TimePerformed AtPathologist SignatureTHYROID STIMULATING HORMONE1.7000.358 - 3.740 uIU/mLTBHSpecimen (Source)Anatomical Location / LateralityCollection Method / VolumeCollection TimeReceived Time05/17/2025 2:16 PM EDT1 2:17 PM EDT Narrative CLIN[facility]NC - 05/17/2025 3:02 PM EDT Authorizing ProviderResult TypeResult StatusCorey Magen DOCLINISYNCFinal Result Performing OrganizationAddressCity/State/ZIP CodePhone Number [facility]IN[facility] * ALL LUTEINIZING HORMONE (05/17/2025 2:16 PM [...] DOCLINISYNCFinal Result Performing OrganizationAddressCity/State/ZIP CodePhone Number CLINISYNC TB * ALL FOLLICLE STIMULATING HORMONE (05/17/2025 2:16 [...] Magen DOCLINISYNCFinal Result Performing OrganizationAddressCity/State/ZIP CodePhone Number [facility] * ALL DHEA SULFATE (05/17/2025 2:16 PM EDT)ComponentValueRef RangeTest Method Analysis TimePerformed AtPathologist SignatureDHEA-JVYGGTV46.141.2 - 243.7 ug/dLTBHSpecimen (Source)Anatomical Location / LateralityCollection Method / VolumeCollection TimeReceived Time05/17/2025 2:16 PM EDT1 2:17 PM EDT Narrative CLIN[facility]YNC - 05/18/2025 12:09 PM EDT Authorizing ProviderResult TypeResult StatusCorey Magen DOCLINISYNCFinal Result Performing OrganizationAddressCity/State/ZIP CodePhone Number [facility] * ALL DEHYDROEPIANDROSTERONE (05/17/2025 2:16 PM EDT)ComponentValueRef RangeTest MethodAnalysis TimePerformed AtPathologist SignatureDHEA, AQQSK7735 - 701 ng/dLTBHComment: This test was developed and its performance characteristics determined by [facility]. It has not been cleared or approved by the Food and Drug Administration. Performed at: ?? - [facility] [address] ??[id number] Salsa Dance Instructor: Deo Schaefer MD, Phone: ??[phone] Specimen (Source)Anatomical Location / LateralityCollection Method / Volume Collection TimeReceived Time05/17/2025 2:16 PM EDT1 2:17 PM EDT Narrative KADYISYNC - 05/26/2025 2:07 AM EST Authorizing ProviderResult TypeResult StatusCorey Magen DOCLINISYNCFinal Result Performing OrganizationAddressCity/State/ZIP CodePhone Number [facility] * (ABNORMAL) ALL CBC WITH AUTO DIFF (05/17/2025 2:16 PM EDT)ComponentValueRef RangeTest MethodAnalysis TimePerformed AtPathologist SignatureTBH WBC9.44.0 - 11.0 10 3/uLTBHTBH RBC4.08(L)4.20 - 5.40 10 6/uLTBHTBH HGB12.412.0 - 16.0 g/dL TBHTBH HCT37.736.0 - 48.0 %TBHTBH MCV92.481.0 - 99.0 fLTBHTBH MCH30.426.7 - 34.0 pgTBHTBH MCHC32.929.9 - 35.2 g/dLTBHTBH RDW12.511.0 - 15.0 %TBHTBH WGJ520 150 - 450 10 3/uLTBHTBH MPV9.1(L)9.5 - [...] Magen DOCLINISYNCFinal Result Performing OrganizationAddressCity/State/ZIP CodePhone Number [facility] * (ABNORMAL) IGP,APTIMA HPV,AGE GDLN (05/17/2025 [...] at: 01 =G ?[facility] [address] ?? [address] [place] ??[phone] ?? Yola Beyer MD, IGP, APTIMA HPV, RFX 16/18,45Note.TBHComment: ?? TESTS ? RESULT ??FLAG ??UNITS ?REF RANGE ??LAB DIAGNOSIS: ?02 ?? NEGATIVE FOR INTRAEPITHELIAL LESION OR MALIGNANCY. ?? REACTIVE CELLULAR CHANGES AND/OR REPAIR ARE PRESENT. Specimen adequacy: ?02 ?? Satisfactory for evaluation. ??Endocervical and/or squamous metaplastic ?? cells (endocervical component) are present. Performed by: ? 02 ?? Ashley Rubin, Treasury Accountant (ASCP) Electronically si... ?02 ?? Yola Beyer [...] pap test was interpreted ?? using the Wanova(R) SourceLabsius(TM) Cervical Algorithm whole ?? slide imaging system. HPV Genotype Reflex ?? Note ?02 ?? Criteria met, see HPV Genotype results. ?FLAG LEGEND: ?L-Low Normal,H-High Normal,LL-Alert Low,HH-Alert High <-Panic Low,>-Panic High,A-Abnormal,AA-Critical Abnormal Performed at: 02 WB ?[facility] ?? [address] [place], [place] ??[phone] ?? Yola Beyer MD, HPV APTIMAPositive(A)NegativeTBHComment: This nucleic acid amplification test detects fourteen high- risk HPV types (16,18,31,33,35,39,45,51,52,56,58,59,66,68) without differentiation. HPV GENOTYPE 16NegativeNegativeTBHHPV GENOTYPE 18,45NegativeNegativeTBHComment: Performed at: ??=G - [facility] ??[id number] Salsa Dance Instructor: Yola Beyer MD, Phone: ??[phone] Performed at: ??WB - [facility] ??[id number] Salsa Dance Instructor: Yola Beyer MD, Phone: ??[phone] Specimen (Source)Anatomical Location / LateralityCollection Method / Volume Collection TimeReceived Time05/17/2025 1:11 PM EDT1 7:52 PM EDT Narrative CLIN[facility]YNC - 05/26/2025 9:07 PM EST BRUSH-SPATULA CERVIX ENDOCERVIX Authorizing ProviderResult TypeResult StatusCorey Magen DOLAB BLOOD ORDERABLES Final ResultPerforming OrganizationAddressCity/State/ZIP CodePhone Number [facility] * (ABNORMAL) PAP TEST, EXTERNAL (05/17/2025 12:00 AM EDT) Narrative Authorizing ProviderResult TypeResult StatusCorey Magen DOLAB CYTOLOGY ORDERABLESFinal ResultPerforming OrganizationAddressCity/State/ZIP CodePhone Number EXTERNAL LAB * Bilateral screening mammogram with tomosynthesis (06/02/2024 [...] Christian Camp M.D. Authorizing ProviderResult TypeResult StatusJessie Bruner MDIMG BI PROCEDURES Final Result * THINPREP TIS PAP REFLEX HPV MRNA E6/E7 (37505) (01/30/2021)ComponentValueRef RangeTest MethodAnalysis TimePerformed AtPathologist SignatureCLINICAL INFORMATION:Normal [...] Reference Range: ZL, CT(ASCP) CT screening location: [place] [address]. COMMENTSEE COMMENTNOMS LEGACY EXTERNAL LABComment: EXPLANATORY NOTE: [...] Time01/30/2021 Narrative Authorizing ProviderResult TypeResult StatusGeoffrey Perales [facility] LABSFinal ResultPerforming OrganizationAddressCity/State/ZIP CodePhone Number [facility] LEGACY EXTERNAL LAB * Colonoscopy (12/09/2014 12:00 PM EDT)Anatomical RegionLateralityModality EndoscopySpecimen (Source)Anatomical Location / LateralityCollection Method / VolumeCollection TimeReceived Time12/09/2014 12:00 PM EDT Narrative 12/09/2014 12:00 PM EDT PERFORMED AT [facility] LOCATION:[id number] external hemorrhoids Procedure Note CONVERSION, GENERIC - 12/06/2022 PERFORMED AT [facility] LOCATION:[id number] external hemorrhoids Authorizing ProviderResult TypeResult StatusJessie Bruner MDENDOSCOPY PROCEDURE ORDERABLESFinal Result from Last 3 Months or Most Recently Relevant to Health Maintenance Insurance Care Teams Team MemberRelationshipSpecialtyStart DateEnd Jessie Bruner MD [address] [place] [address] [facility] Jessie Bruner MD [address] [place] [address] [facility] - [facility]23
== END 2025-06-14 12:35 | disposition home or self-care (01) ==
LOC: LAB 12:34
PROVIDERS: PCP Family Medicine; Visit Provider Obstetrics & Gynecology
DX: N94.6 Dysmenorrhea, unspecified (principal); N93.9 Abnormal uterine and vaginal bleeding, unspecified
CPT/HCPCS: 88305